=== PATIENT | female | born 1950 | race Caucasian/White ===

== ENCOUNTER 2018-08-08 14:52 | Inpatient (IN) ==
[2018-08-08] MEDS ORDERED: CLINIMIX E 4.25%-5% SOLUTION 1,000 ML IV SCH (17:15)
[2018-08-08] MEDS ORDERED: NS 1,000 ML IV SCH ×2 (17:15→18:15)
[2018-08-08] MEDS ORDERED: LOVENOX SUBQ SCH (17:15)
[2018-08-08] MEDS: ZOFRAN IV PRN (18:05)
[2018-08-08] MEDS: MORPHINE IV PRN (18:05)
--- NOTE | 2018-08-08 18:08 | Diag Imaging Result Doc PS360 ---
EXAM: ABDOMEN FLAT/UPRIGHT 08/08/2018 HISTORY: abdominal pain TECHNIQUE: Flat and upright abdomen COMMENT: There are phleboliths in the pelvis. There is no evidence of bowel obstruction organomegaly or mass. There is extensive arterial calcification. IMPRESSION: Nonspecific abdomen. Electronically signed by Arpan Astorga 08/08/2018 6:06 PM
[2018-08-08 19:18] LABS: HEMATOCRIT 39.5 % (37.0-47.0); HEMOGLOBIN 13.1 g/dL (12.0-16.0); RBC 3.98 XMIL (4.2-5.4); WBC 11.69 X1000 (4.8-10.8)
[2018-08-08 19:19] LABS: BASO# 0.06 X1000 (0.0-0.2); BASO% 0.5 % (0.0-0.8); IMM GRAN# 0.26 X1000 (0.0-0.04); IMM GRAN% 2.2 % (0.0-0.5); LYMPH# 1.59 X1000 (1.2-3.4); LYMPH% 13.6 % (20.5-51.1); MCH 32.9 PG (27-31); MCHC 33.2 g/dL (33-37); MCV 99.2 FL (81-99); MONO# 0.69 X1000 (0.11-0.59); MONO% 5.9 % (1.7-9.3); MPV 10.2 FL (7.4-10.4); NEUT# 9.09 X1000 (1.4-6.5); NEUT% 77.8 % (42.2-75.2); PLT 648 X1000 (130-400)
[2018-08-08 19:36] LABS: AGAP 21; ALB/GLOB RATIO 0.9; ALBUMIN 3.3 g/dL (3.5-5.0); ALKALINE PHOSPHATASE 405 U/L (32-104); BUN 16 mg/dL (8-22); CALCIUM 9.6 mg/dL (8.8-10.2); CHLORIDE 97 mmol/L (98-107); COSMO 271; CREATININE 0.6 mg/dL (0.5-0.9); ESTIMATED GFR > 60; GLUCOSE 130 mg/dL (70-104); GOT 31 U/L (10-30); GPT 16 U/L (10-36); POTASSIUM 3.9 mmol/L (3.5-5.1); SODIUM 134 mmol/L (136-145); TCO2 16 mmol/L (25-35); TOTAL BILIRUBIN 0.35 mg/dL (0.20-1.00); TOTAL PROTEIN 6.9 g/dL (6.3-8.3)
[2018-08-08] MEDS: NORCO-7.5 PO PRN (19:57)
[2018-08-08 20:41] LABS: BANDS 2 % (0-1); LYMPHS 10 % (21-51); MONO 2 % (1-9); SEGS 85 % (42-75)
[2018-08-08] MEDS ORDERED: HEPARIN SUBQ SCH (21:00)
--- NOTE | 2018-08-08 21:51 | HISTORY AND PHYSICAL ---
ONCOLOGIST: Dr. Adrian Razo. CHIEF COMPLAINT: Abdominal pain, dehydration, metastatic ovarian cancer. HISTORY OF PRESENT ILLNESS: This is a 68-year-old female with a history of metastatic ovarian cancer, who presents to the floor as a direct admit from Dr. Razo's office. Dr. Razo gives a history of metastatic ovarian cancer. During this last month, she has developed abdominal distention pain and constipation, but over the last 4 to 5 days, she has developed diarrhea. She cannot report when her last formed bowel movement was. She has had anorexia along with nausea for the last 2 weeks. Stated that she quit eating solid food during this last week. PAST MEDICAL HISTORY: Metastatic ovarian cancer. SOCIAL HISTORY: She smokes 1/4 pack of cigarettes a day. Denies alcohol or illicit drug use. PAST SURGICAL HISTORY: She has had a cholecystectomy. ALLERGIES: No known drug allergies. HOME MEDICATIONS: None. REVIEW OF SYSTEMS: Discussed with patient with pertinent positives stated in the HPI. She denied any syncope, any chest pain, palpitations, shortness of breath, PND, orthopnea, any cough, any fevers, chills, any night sweats, any vomiting, any black or bloody vomitus or stools, hematuria, dysuria, frequency, or urgency. PHYSICAL EXAMINATION: GENERAL: This is a 68-year-old female who is lying in the bed on the medical/surgical floor, in no distress. VITAL SIGNS: Blood pressure is 150/60 with a heart rate of 98, respirations 18. Temperature is 97.5 degrees oral with room air saturations of 93%. EYES: Pupils equal, round, react to light. EOMs are intact. Sclerae anicteric. HENT: Head is normocephalic, atraumatic. Mucous membranes are dry. NECK: Supple, with trachea midline. No JVD. CARDIOVASCULAR: Regular rate and rhythm. S1, S2 appreciated. She has no lower extremity edema. Calves are nontender bilateral with peripheral pulses palpable x4 extremities. PULMONARY: Breath sounds are clear with no increased work of breathing noted. Chest rises and falls symmetric with respiration. Chest wall is nontender to palpation. GASTROINTESTINAL: The abdomen is distended, soft, nontender, with bowel sounds in all 4 quadrants. GENITOURINARY: She has no CVA nor suprapubic tenderness. NEUROLOGIC: She is alert and oriented x3. Cranial nerves 2 through 12 are grossly intact. SKIN: Warm and dry. ASSESSMENT AND PLAN: 1. Metastatic ovarian cancer, followed by Dr. Razo. We will consult Dr. Razo. 2. Abdominal pain. Morphine 2 mg q.3 hours p.r.n. and monitor. 3. Recent diarrhea/constipation. KUB to assure that she is not impacted. 4. Dehydration. Normal saline at 100 mL an hour. 5. Failure to thrive, malnutrition. Clinimix at 100 mL an hour. 6. For deep vein thrombosis prophylaxis, Lovenox. 7. For gastrointestinal prophylaxis, Protonix 8. Further treatments pending hospital course. Patient seen and examined by me face to face, all the laboratory, vitals signs and images were reviewed, patient presented to this hospital directly from Dr Razo's office due to abdominal pain and distention, she has a history of peritoneal carcinomatosis, ovary cancer, she has not been eating well, failure to thrive, we will probably get a paracentesis done, we need to control her pain to see if she can eat , I agree with the CHIEF DIVERSITY OFFICER's assessment and plan, Ish Castorena MD. Dictated by CAMILA Barksdale for Ish Shipley MD cc: CAMILA Barksdale MD [facility]
[2018-08-08 23:44] LABS: URINE SOURCE CLEAN CATCH
[2018-08-08 23:53] LABS: BILIRUBIN URINE SMALL (NEGATIVE); BLOOD URINE NEGATIVE (NEGATIVE); COLOR YELLOW; GLUCOSE URINE NEGATIVE (NEGATIVE); KETONE URINE 10 mg/dL (NEGATIVE); LEUKOCYTES URINE NEGATIVE (NEGATIVE); NITRITE URINE NEGATIVE (NEGATIVE); PROTEIN URINE 70 mg/dL (NEGATIVE); TURBIDITY URINE CLEAR (CLEAR); UROBILINOGEN URINE 2 mg/dL (NORMAL)
[2018-08-08 23:57] LABS: UR EPITHELIAL CELLS <10 /HPF (<10); URINE BACTERIA NEGATIVE /HPF; URINE RBC <10 /HPF (<10); URINE WBC <10 /HPF (<10); URINE YEAST NONE SEEN
[2018-08-08 23:58] LABS: URINE CASTS GRANULAR PRESENT; URINE CRYSTALS NONE SEEN; URINE SMALL ROUND CELLS NONE SEEN
[2018-08-09] MEDS: MORPHINE IV PRN ×4 (01:11→21:07)
[2018-08-09] MEDS: ZOFRAN IV PRN ×2 (01:12→06:29)
[2018-08-09] MEDS: NORCO-7.5 PO PRN ×2 (06:29→19:05)
[2018-08-09 07:47] LABS: BASO# 0.02 X1000 (0.0-0.2); BASO% 0.2 % (0.0-0.8); EOS# 0.01 X1000 (0.0-0.7); EOS% 0.1 % (0.0-10.0); HEMATOCRIT 34.8 % (37.0-47.0); HEMOGLOBIN 11.4 g/dL (12.0-16.0); IMM GRAN# 0.18 X1000 (0.0-0.04); IMM GRAN% 2.1 % (0.0-0.5); LYMPH# 1.86 X1000 (1.2-3.4); LYMPH% 21.2 % (20.5-51.1); MCH 32.4 PG (27-31); MCHC 32.8 g/dL (33-37); MCV 98.9 FL (81-99); MONO# 1.24 X1000 (0.11-0.59); MONO% 14.2 % (1.7-9.3); NEUT# 5.45 X1000 (1.4-6.5); NEUT% 62.2 % (42.2-75.2); PLT 599 X1000 (130-400); RBC 3.52 XMIL (4.2-5.4); RDW 17.8 % (11.5-14.5); WBC 8.76 X1000 (4.8-10.8)
[2018-08-09 08:00] LABS: AGAP 11; ALBUMIN 3.2 g/dL (3.5-5.0); ALKALINE PHOSPHATASE 336 U/L (32-104); BUN 19 mg/dL (8-22); CALCIUM 9.2 mg/dL (8.8-10.2); CHLORIDE 98 mmol/L (98-107); COSMO 273; CREATININE 0.5 mg/dL (0.5-0.9); ESTIMATED GFR > 60; GLUCOSE 149 mg/dL (70-104); GOT 23 U/L (10-30); GPT 13 U/L (10-36); MAGNESIUM 1.9 mg/dL (1.5-2.7); POTASSIUM 3.5 mmol/L (3.5-5.1); SODIUM 134 mmol/L (136-145); TCO2 25 mmol/L (25-35); TOTAL BILIRUBIN 0.24 mg/dL (0.20-1.00); TOTAL PROTEIN 6.4 g/dL (6.3-8.3)
[2018-08-09] MEDS ORDERED: ZANTAC IV SCH (08:15)
[2018-08-09] MEDS: CLINIMIX E 4.25%-5% SOLUTION 1,000 ML IV SCH (08:28)
[2018-08-09] MEDS: NS 1,000 ML IV SCH (09:00)
--- NOTE | 2018-08-09 09:00 | PROGRESS NOTE ---
DATE: 08/09/2018 SUBJECTIVE: Patient is still complaining of abdominal pain. She seems to be a little bit more hydrated. She is complaining of abdominal pain and distention. I will ask for an abdominal paracentesis today. I told the patient that likely this abdominal distention will come back, and this is just to relieve the symptoms momentarily. OBJECTIVE: Vital Signs: Temperature 98 degrees, pulse 91, respiratory rate 18, blood pressure 140/62, and oxygen saturation 99 on room air. HEENT: Head normocephalic. No trauma. PERRLA. Neck: Supple. No JVD. No masses. Central trachea. Chest: Decreased breath sounds at the bases with some crepitus. Otherwise, clear to auscultation. No wheezing. No rales. Abdomen: The abdomen is distended and tense. Positive bowel sounds. Ascites. Extremities: No clubbing or cyanosis. Neurological: This patient is alert. She is oriented x3. No focal deficits. LABORATORY: WBC 8.7, hemoglobin 11.4, hematocrit 34.8, and platelet 599,000. Sodium 134, potassium 3.5, chloride 98, bicarbonate 25, BUN 19, creatinine 0.5, glucose 149. AST 23, ALT 13, alkaline phosphatase 336, and albumin 3.2. ASSESSMENT AND PLAN: 1. Metastatic ovarian cancer, followed by Dr. Razo. Consult has been placed. We will await for recommendations. 2. Intractable abdominal pain. We will continue with morphine 2 mg every 3 hours, and then p.o. medication as well. We will continue with same management. 3. Recent diarrhea/constipation. We did an abdominal x-ray yesterday to rule out obstruction, but there is no evidence of bowel obstruction or mass. There is an extensive arterial calcification. 4. Dehydration. She seems to be doing better. She seems to be more hydrated today. 5. Failure to thrive, malnutrition. She has been placed on Clinimix. Since this lady looks hydrated today, I will decrease the rate of the normal saline and the Clinimix as well. 6. Deep vein thrombosis prophylaxis. We will continue with same management. 7. Gastrointestinal prophylaxis with ranitidine. 8. Ascites, likely malignant. I will ask Interventional Radiology to remove some fluid from the abdomen. We will monitor. cc: Ish Shipley MD
[2018-08-09] MEDS: ZANTAC 50 MG in NS 50 ML IV SCH ×2 (10:20→19:04)
[2018-08-09 10:21] LABS: INR 1.17; PROTIME 15.9 Seconds (11.0-16.0)
[2018-08-09 10:22] LABS: PTT 46.5 Seconds (22.3-41.8)
[2018-08-09] MEDS: HEPARIN SUBQ SCH ×2 (12:19→21:12)
--- NOTE | 2018-08-09 13:19 | HEMO/ONC CONSULTATION ---
DATE: 08/09/2018 CHIEF COMPLAINT: The patient is experiencing abdominal pain, dehydration, anorexia, with a history of metastatic ovarian cancer. HISTORY OF PRESENT ILLNESS: Ms. Kirkland has a history of metastatic ovarian cancer. She was seen in the office yesterday with complaint of severe abdominal distention, anorexia, dehydration, and abdominal pain. She stated she has had minimal amount to eat or drink over the past week and a half. Her pain has increased. She is out of pain medication. When she did have hydrocodone, she was experiencing constipation. However, in the last 4-5 days, she has developed diarrhea. She reports nausea and vomiting. Ms. Kirkland is known to us. She is currently receiving treatment for metastatic ovarian cancer with IV Gemzar. She also receives B12 injections in our clinic. She has recently received 2 infusions of IV iron for iron-deficiency anemia. PAST MEDICAL HISTORY: Her past medical history includes: Metastatic ovarian cancer, essential hypertension, and iron-deficiency anemia. PAST SURGICAL HISTORY: Cholecystectomy. SOCIAL HISTORY: Smokes approximately a fourth pack of cigarettes a day. Denies alcohol or illicit drug use. ALLERGIES: Denies any known drug allergies. HOME MEDICATIONS: [place], folic acid, promethazine, Reglan, and Zofran. REVIEW OF SYSTEMS: She denies any chest pain, fevers, night sweats, melena, or clinical signs of bleeding. She complains of abdominal distention that causes some shortness of breath. She has had nausea and vomiting, diarrhea and constipation followed by diarrhea. PHYSICAL EXAMINATION: GENERAL: The patient appears uncomfortable. She is thin and pale. VITAL SIGNS: Temperature 98 degrees Fahrenheit, pulse rate 91, blood pressure 140/62, oxygen saturation 99% on room air. She complains of 8/10 abdominal pain. ENT: Pupils are PERRLA. Anicteric. Mucous membranes are dry. No JVD noted. CARDIOVASCULAR: Regular rate and rhythm, S1, S2 noted. No extremity edema noted. No murmurs, clicks, or rub audible. PULMONARY: Breath sounds are clear to auscultation. Normal respiratory effort noted. GASTROINTESTINAL: Abdomen is remarkably distended. It is soft. Tender to palpation. Bowel sounds present in all 4 quadrants. NEUROLOGIC: She is alert and oriented x3. SKIN: Warm and dry. LABORATORY DATA: White blood count is 8.76 this morning, hemoglobin is 11.4, hematocrit is 34.8, platelet count is 599,000. Potassium is 3.5, creatinine is 0.5, calcium is 9.2, alkaline phosphatase 336. ASSESSMENT AND PLAN: 1. Recurrent ovarian carcinoma. At this time, we will hold chemotherapy while patient is hospitalized. Once discharged and patient is stronger, hopefully we will restart chemotherapy at that time. Will continue to monitor. 2. Abdominal pain. The patient is being followed by Hospitalist service. 3. Dehydration. The patient is getting normal saline at 100 mL/hour. Followed by Hospitalist service. 4. Failure to thrive, malnutrition. The patient is receiving Clinimix at 100 mL/hour per Hospitalist service. 5. Deep venous thrombosis prophylaxis. The patient has been started on Lovenox. Dictated by CAMILA Catalan for Adrian Razo MD Patient seen and examined. As above. Patient seen and examined. Patient has a history of recurrent ovarian carcinoma and has been on therapy for a few years. About 2 months ago her disease progressed on Rubraca. She was started on Gemzar due to rising CA 125 which had increased to about 750. Within one cycle her CA- 125 dropped significantly to about 290. However in the meanwhile, she developed abdominal distention and abdominal pain. Over the last 1 week her oral intake has significantly decreased and she has lost weight. She is admitted for pain management and management of her ascites. Today she has tense ascites. Proceed with therapeutic paracenteses. Continue IV nutrition and encouraged her to eat. Increase morphine to 4 mg every 3 hours when necessary. We will follow with you. Thank you Adrian Razo M.D. cc: Adrian Razo MD [facility]
--- NOTE | 2018-08-09 14:23 | Diag Imaging Result Doc PS360 ---
US ABD PARACENTESIS W S/I - 08/09/2018 INDICATION: Ascites COMPARISON: 01/28/2016 FINDINGS: The risks and benefits of the procedure were discussed with the patient. All questions were answered. Written and verbal consent was obtained. Ultrasound scanning demonstrated ascites. Overlying skin was prepped and draped in sterile fashion. Local anesthesia was achieved with injection of 10 cc 1% lidocaine. The paracentesis catheter was advanced until the return of ascites fluid. 3.9 L of dark george fluid was aspirated was aspirated. The catheter was withdrawn intact. There were no known complications. IMPRESSION: Technically successful ultrasound-guided paracentesis with no known complications. Electronically signed by Kareem South 08/09/2018 2:21 PM
[2018-08-09] MEDS: MIRALAX PO SCH (15:55)
[2018-08-10] MEDS: NORCO-7.5 PO PRN ×3 (00:15→17:24)
[2018-08-10] MEDS: ZANTAC 50 MG in NS 50 ML IV SCH ×3 (00:17→17:25)
[2018-08-10] MEDS: CLINIMIX E 4.25%-5% SOLUTION 1,000 ML IV SCH ×2 (00:17→13:37)
[2018-08-10] MEDS: MORPHINE IV PRN ×3 (06:31→23:34)
[2018-08-10 07:18] LABS: HEMOGLOBIN 11.4 g/dL (12.0-16.0); RDW 17.8 % (11.5-14.5)
[2018-08-10 07:36] LABS: AGAP 10; ALB/GLOB RATIO 0.9; ALBUMIN 2.5 g/dL (3.5-5.0); ALKALINE PHOSPHATASE 246 U/L (32-104); BUN 19 mg/dL (8-22); CHLORIDE 99 mmol/L (98-107); COSMO 267; CREATININE 0.4 mg/dL (0.5-0.9); ESTIMATED GFR > 60; GLUCOSE 132 mg/dL (70-104); GOT 20 U/L (10-30); GPT 10 U/L (10-36); MAGNESIUM 1.8 mg/dL (1.5-2.7); POTASSIUM 4.3 mmol/L (3.5-5.1); SODIUM 131 mmol/L (136-145); TCO2 22 mmol/L (25-35); TOTAL BILIRUBIN 0.23 mg/dL (0.20-1.00); TOTAL PROTEIN 5.3 g/dL (6.3-8.3)
[2018-08-10 08:21] LABS: MCH 32.9 PG (27-31); MCHC 32.6 g/dL (33-37); MCV 101.2 FL (81-99); RBC 3.46 XMIL (4.2-5.4); WBC 11.28 X1000 (4.8-10.8)
[2018-08-10] MEDS: HEPARIN SUBQ SCH ×2 (09:58→23:37)
[2018-08-10] MEDS: MIRALAX PO SCH (09:59)
--- NOTE | 2018-08-10 11:34 | HEMO/ONC PROGRESS NOTE ---
DATE: 08/10/2018 SUBJECTIVE: The patient states her abdominal pain has been relieved due to paracentesis. She does appear to be feeling better as well as more hydrated. She has not gained back her appetite. She states her pain is being well-controlled at this time and she is feeling better. OBJECTIVE: Vital signs: Temperature is 98.1, heart rate is 95, respiratory rate 16, blood pressure 128/73, oxygen saturation 100% on room air. HEENT: PERRLA. No JVD. Respiratory: Decreased breath sounds at the bases. Patient able to clear mucus with cough. No wheezing, rales, or rhonchi. Abdomen: Abdomen is soft and nondistended. Positive bowel sounds. Pain to left upper quadrant with palpation. Extremities: No edema noted. Neurological: The patient is alert and oriented x3. No focal deficits noted. LABORATORY: White blood cells 11.28, hemoglobin 11.4, hematocrit 35.0, platelet count 463. Potassium is 4.3, creatinine is 0.4, calcium is 8.0, and her alkaline phosphatase is 246. ASSESSMENT AND PLAN: 1. Recurrent ovarian cancer: Chemotherapy will continue to be held at this time while patient is in the hospital. We will consider restarting her therapy once she has recovered from this hospital stay. 2. Intractable abdominal pain. We will continue with morphine 4 mg every 3 hours as needed. Goal to switch the patient to p.o. medication. Continue with Hospitalist's plan. 3. Recent diarrhea/constipation. The patient to continue MiraLAX. 4. Dehydration. Hydration has improved. Continue the patient on normal saline per Hospitalist service. 5. Nutrition. The patient is continuing on Clinimix. The patient needs Clear protein shakes 3-4 times daily with every meal and snacks as she can tolerate. Encouraged the patient to eat and allow her to progress with her diet as she can tolerate. 6. Deep vein thrombosis prophylaxis. Continue with anticoagulation management. Begin to get patient out of bed today as her pain has decreased. Dictated by CAMILA Catalan for Adrian Razo MD Patient seen and examined. As above. Patient is feeling better. She underwent large volume paracenteses. This has given her relief. Pain management is adequate. We will encourage her to drink protein shakes at least 4 times a day. Hopefully in a day will try to get her home. Adrian Razo M.D. cc: Adrian Razo MD [facility]
--- NOTE | 2018-08-10 12:10 | PROGRESS NOTE ---
DATE: 08/10/2018 SUBJECTIVE: Patient is still complaining of abdominal pain; 3.9 L of fluid has been removed yesterday from her abdomen. She feels better, but she is not eating that much. I talked to the patient and I encouraged her to start eating so she can get a little bit better. OBJECTIVE: Vital Signs: Temperature 98.1 degrees, pulse 95, respiratory rate 16, blood pressure 128/73, oxygen saturation 100% on room air. HEENT: Head normocephalic, no trauma. PERRLA. Neck: Supple. No JVD. No masses. Central trachea. Chest: Clear to auscultation. No wheezing. No rales. Abdomen: Soft, distended, positive wave sign, ascites, generalized tenderness to palpation. Extremities: No edema, no clubbing, no cyanosis. Neurological examination: The patient is alert and oriented x3. No focal deficits. LABORATORY: WBC 11.2, hemoglobin 11.4, hematocrit 35, platelets 463. Sodium 131, potassium 4.3, chloride 99, bicarbonate 22. BUN 19, creatinine 0.4, glucose 132, calcium 8. AST 20, ALT 10, alkaline phosphatase 246. ASSESSMENT AND PLAN: 1. Recurrent ovarian carcinoma, followed by Hematology/Oncology Department. Her pain is better controlled, but she is still not eating that much, even though we removed 3.9 liters of fluid yesterday. I will continue to monitor. 2. Abdominal pain as above. 3. Recent diarrhea/constipation. We did an abdominal x-ray 2 days ago to rule out obstruction, but there is not evidence of obstruction or mass. There is an extensive anterior calcification. 4. Dehydration resolved. 5. Failure to thrive, malnutrition. She has been placed on Clinimix. She looks hydrated. I will continue with same management. 6. Deep vein thrombosis prophylaxis. Continue with the same treatment. 7. Gastrointestinal prophylaxis with ranitidine. 8. Ascites, likely malignant, status post paracentesis, 3.9 liters of fluid has been removed. cc: Ish Shipley MD
[2018-08-10] MEDS: NS 1,000 ML IV SCH (13:37)
[2018-08-10] MEDS: ZOFRAN IV PRN (13:37)
[2018-08-10] MEDS: ZOFRAN ODT PO SCH (17:24)
[2018-08-11] MEDS: ZANTAC 50 MG in NS 50 ML IV SCH ×3 (00:15→17:27)
[2018-08-11] MEDS: NORCO-7.5 PO PRN ×3 (01:30→17:26)
[2018-08-11] MEDS: CLINIMIX E 4.25%-5% SOLUTION 1,000 ML IV SCH ×2 (04:15→17:27)
[2018-08-11] MEDS: MORPHINE IV PRN ×4 (04:31→21:57)
[2018-08-11] MEDS: ZOFRAN ODT PO SCH ×3 (06:30→17:27)
[2018-08-11 08:03] LABS: AGAP 8; BUN 18 mg/dL (8-22); CALCIUM 8.5 mg/dL (8.8-10.2); CHLORIDE 96 mmol/L (98-107); COSMO 262; CREATININE 0.4 mg/dL (0.5-0.9); ESTIMATED GFR > 60; GLUCOSE 113 mg/dL (70-104); POTASSIUM 4.7 mmol/L (3.5-5.1); SODIUM 129 mmol/L (136-145); TCO2 25 mmol/L (25-35)
[2018-08-11] MEDS: HEPARIN SUBQ SCH ×2 (10:44→21:44)
[2018-08-11] MEDS: MIRALAX PO SCH (10:45)
--- NOTE | 2018-08-11 15:02 | HEMO/ONC PROGRESS NOTE ---
DATE: 08/11/2018 SUBJECTIVE: The patient is awake and comfortable. She states that she is having increased abdominal pain today. Her abdomen is more full again. She still does not have any appetite. I am encouraging her to eat and attempt protein shakes. OBJECTIVE: Vital Signs: Temperature 98.4 degrees F, pulse 87, respiratory rate 15, blood pressure 131/61, oxygen saturation 100% on room air. HEENT: PERRLA. Neck: Supple. No JVD. No lymphadenopathy. Chest: Clear to auscultation. No wheezing or rales. Abdomen: Soft, it is distended. Abdominal tenderness to the left and right upper quadrants. Extremities: No edema. No cyanosis. Neurologic: Alert and oriented x3. No focal deficits. LABORATORY: Sodium is 129, calcium is 8.5. Her CBC today is pending. ASSESSMENT AND PLAN: 1. Recurrent ovarian cancer. Chemotherapy will continue to be held at this time while patient is in the hospital. We will consider restarting her therapy once she has recovered from this hospital stay. 2. Intractable abdominal pain. Continue to medicate per Hospitalist's plan. It is likely will have to continue therapeutic paracentesis on outpatient basis to control her ascites. 3. Dehydration. The patient's hydration has improved. Stop IVF due to worsening ascitis. 4. Nutrition. Continue to encourage the patient to eat and drink, encourage that she has at least 4 protein shakes a day is a our goal. Continue to give patient Zofran 4 mg OTD 30 minutes prior to her scheduled meals. 5. Deep vein thrombosis prophylaxis. Continue with anticoagulation management. The patient should be getting out of bed several times a day as her pain allows. Dictated by CAMILA Catalan for Adrian Razo MD Patient seen and examined. As above. Her abdomen is distended again today. Her ascites appears to have collected rather quickly. We will consult surgery to consider long-term drainage. Continue pain management as we are doing. Continue Clinimix. She has been encouraged to eat. Start Megace trial. DVT prophylaxis with Lovenox or heparin. Discussed with Dr. Lord. Adrian Razo M.D. cc: Adrian Razo MD [facility]
[2018-08-11] MEDS: MEGACE PO SCH ×2 (15:27→21:44)
--- NOTE | 2018-08-11 15:47 | PROGRESS NOTE ---
DATE: 08/11/2018 SUBJECTIVE: Patient is still complaining of abdominal pain, 3.5 L of fluid has been removed 2 days ago but the abdomen is again distended, she is not eating, I will keep her on Clinimix but I will decrease the rate to 50 mL/h. I had a conversation with Dr. Razo which is technology analyst/oncologist about this patient, we are consulting surgery department to place a Port- A-Cath and to place a permanent abdominal drain since this patient's ascites came back really fast, hopefully with this and controlling the pain the patient will be able to eat. OBJECTIVE: Vital Signs: Temperature 98.4 degrees, pulse 87, respiratory rate 15, blood pressure 131/61, oxygen saturation 100% on room air. HEENT: Head normocephalic. No trauma. PERRLA. Neck: Supple. No JVD. No masses. Central trachea. Chest: Clear to auscultation. No wheezing. No rales. Abdomen: Soft, distended, positive wave sign, ascites, generalized tenderness to palpation. Extremities: No edema, no clubbing, no cyanosis. Neurologic: This patient is alert and oriented x3. No focal deficits. LABORATORY: Sodium 129, potassium 4.7, chloride 96, bicarbonate 25, BUN 18, creatinine 0.4, glucose 113, calcium 8.5. ASSESSMENT AND PLAN: 1. Recurrent ovarian carcinoma followed by Dr. Razo from Hematology Oncology/Department. Her pain is better controlled but she is still having a lot of fluid inside the abdomen, we have requested an evaluation by Surgery Department to place a permanent abdominal drain and a Port- A-Cath, case discussed with Dr. Razo. 2. Abdominal pain as above. 3. Recent diarrhea, constipation, we did an abdominal x-ray 3 days ago to rule out obstruction. There is no evidence of obstruction or mass. There is an extensive arterial calcification. 4. Dehydration resolved. 5. Failure to thrive, malnutrition, continue with Clinimix but I will decrease the dose to 50 mL/h given her ascites. 6. Deep vein thrombosis prophylaxis. For now will continue with heparin subcutaneously twice a day but upon discharge we will send this patient home with warfarin 1 mg or warfarin 2 mg. 7. Gastrointestinal prophylaxis with ranitidine. 8. Ascites, likely malignant, we will try to place a permanent drain with Surgery Department. 9. At this moment we are going to continue with the same management, I have decreased the rate of the Clinimix given her abdominal distention. We believe the ascites is due to the peritoneal carcinomatosis/cancer and a drain hopefully will be placed. Upon discharge Dr. Razo has suggested to start warfarin 1 or 2 mg daily for DVT prophylaxis. In the other hand we put this patient on Megace to stimulate her appetite. cc: Ish Shipley MD
[2018-08-11] MEDS: NS 1,000 ML IV SCH (17:27)
[2018-08-11] MEDS ORDERED: COUMADIN PO SCH (21:00)
[2018-08-12] MEDS: NORCO-7.5 PO PRN ×3 (00:50→19:44)
[2018-08-12] MEDS: ZANTAC 50 MG in NS 50 ML IV SCH ×3 (00:50→18:36)
[2018-08-12] MEDS: MORPHINE IV PRN ×4 (04:48→18:36)
[2018-08-12] MEDS: ZOFRAN ODT PO SCH ×3 (06:15→18:35)
[2018-08-12 07:54] LABS: BASO# 0.04 X1000 (0.0-0.2); BASO% 0.3 % (0.0-0.8); EOS# 0.02 X1000 (0.0-0.7); EOS% 0.2 % (0.0-10.0); HEMOGLOBIN 12.1 g/dL (12.0-16.0); IMM GRAN# 0.31 X1000 (0.0-0.04); IMM GRAN% 2.6 % (0.0-0.5); LYMPH# 1.21 X1000 (1.2-3.4); LYMPH% 10.3 % (20.5-51.1); MCHC 32.7 g/dL (33-37); MCV 97.9 FL (81-99); MONO% 15.3 % (1.7-9.3); MPV 10.5 FL (7.4-10.4); NEUT# 8.39 X1000 (1.4-6.5); NEUT% 71.3 % (42.2-75.2); RBC 3.78 XMIL (4.2-5.4); RDW 17.9 % (11.5-14.5); WBC 11.77 X1000 (4.8-10.8)
[2018-08-12 08:00] LABS: AGAP 12; BUN 15 mg/dL (8-22); CALCIUM 9.1 mg/dL (8.8-10.2); CHLORIDE 91 mmol/L (98-107); COSMO 258; CREATININE 0.5 mg/dL (0.5-0.9); ESTIMATED GFR > 60; GLUCOSE 103 mg/dL (70-104); POTASSIUM 4.5 mmol/L (3.5-5.1); SODIUM 128 mmol/L (136-145); TCO2 25 mmol/L (25-35)
--- NOTE | 2018-08-12 08:55 | GENERAL SURGERY CONSULTATION ---
DATE: 08/11/2018 HISTORY OF PRESENT ILLNESS: This is a 68-year-old female who is a patient Dr. Razo who has metastatic ovarian cancer. She has had recurrent malignant ascites. She was admitted on the with abdominal distention and pain and constipation. She underwent a paracentesis this hospitalization but has on exam, reaccumulated some fluid. She has had a resection through her lower midline, apparently for her ovarian carcinoma, but the details are unclear. She has also had a cholecystectomy. MEDICAL HISTORY: Metastatic ovarian cancer. SOCIAL HISTORY: Quarter pack a day of cigarettes. No alcohol. No drugs. REVIEW OF SYSTEMS: Ten point negative. SURGICAL HISTORY: As mentioned in her HPI. FAMILY HISTORY: Reviewed and noncontributory. PHYSICAL EXAMINATION: VITAL SIGNS: Currently she is afebrile, pulse 94, blood pressure 135/65, oxygen saturation 98%. General: She is alert, in no acute distress. She is 99 pounds, 5 feet tall with a BMI of 19. She is alert and conversant. HEENT: There is no scleral icterus. No cervical mass. Cardiovascular: Normal rate. Pulmonary: No increased work of breathing. Abdomen: Protuberant, soft, with apparent fluid wave but nontender. There is a midline incision. Integument: Warm and dry without jaundice. Psychiatric: Appropriate affect. Neurologic: No gross deficits. Peripheral vascular: Well-perfused. Trace lower extremity edema. Lymphatic: No cervical, axillary or inguinal adenopathy. LABORATORY DATA: White count yesterday was 11, hematocrit 35, platelets 463,000. Creatinine 0.4, sodium is 129. Her INR was 1.17. I reviewed her paracentesis report, abdominal ultrasound and her medical record. ASSESSMENT AND PLAN: A 68-year-old female with metastatic ovarian cancer. I have been consulted to evaluate for a peritoneal catheter she can go home with, as well as port placement. I have discussed the possibility with this patient we will plan for this most likely early next week, possibly sooner pending OR availability over the weekend. cc: Cesario Parra MD
[2018-08-12] MEDS: CLINIMIX E 4.25%-5% SOLUTION 1,000 ML IV SCH (08:56)
[2018-08-12] MEDS: MEGACE PO SCH ×2 (08:57→19:43)
[2018-08-12] MEDS: HEPARIN SUBQ SCH ×2 (08:57→19:44)
[2018-08-12] MEDS: NS 1,000 ML IV SCH (08:57)
[2018-08-12] MEDS: MIRALAX PO SCH (08:59)
[2018-08-12 09:35] LABS: PLT 371 X1000 (130-400)
[2018-08-12 09:38] LABS: ANISOCYTOSIS 1+; LYMPHS 10 % (21-51); MONO 15 % (1-9); SEGS 73 % (42-75)
--- NOTE | 2018-08-12 21:04 | PROGRESS NOTE ---
DATE: 08/12/2018 SUBJECTIVE: The patient is still complaining of abdominal pain. She has been trying to eat some bites, but not enough. I will keep this patient with the same management. The plan is to put a peritoneal catheter and Port-A-Cath by Surgery Department. OBJECTIVE: Vital Signs: Temperature 98.2 degrees, pulse 85, respiratory rate 15, blood pressure 147/64, oxygen saturation 100% on room air. HEENT: Head normocephalic, no trauma. PERRLA. Neck: Supple. No JVD. No masses. Central trachea. Chest: Clear to auscultation. No wheezing. No rales. Abdomen: Tense, distended. Positive wave sign. Ascites. Generalized tenderness to palpation. Extremities: Trace edema. No clubbing. No cyanosis. Neurological: The patient is alert and oriented x3. No focal deficits. LABORATORY: WBC 11.7, hemoglobin 12.1, hematocrit 37, platelets 371,000. Sodium 128, potassium 4.5, chloride 91, bicarbonate 25, BUN 15, creatinine 0.5, glucose 113, calcium 9.1. ASSESSMENT AND PLAN: 1. Recurrent ovarian carcinoma, followed by Dr. Razo from Hematology/Oncology Department, also peritoneal carcinomatosis. We will continue with the same management. The plan is to put a Port-A-Cath and also a peritoneal catheter. 2. Abdominal pain, likely due to her peritoneal carcinomatosis and ascites. She had a paracentesis done a few days ago, but she reaccumulated again really fast so the decision to put a drain has been made. 3. Recent diarrhea and constipation. She is not complaining of any of those at this moment. 4. Dehydration, resolved. 5. Failure to thrive, malnutrition. Continue with Clinimix. 6. Deep vein thrombosis prophylaxis. For now, we will continue with heparin subcutaneously twice a day, but upon discharge, we will send this patient home with warfarin 1 mg or warfarin 2 mg p.o. daily. 7. Gastrointestinal prophylaxis with ranitidine. 8. Ascites, likely malignant. We will try to get a permanent drain with Surgery Department. 9. For the moment, I will continue with same management. I believe once the catheter is placed, she will feel better and she will start eating. Upon discharge, Dr. Razo has suggested to start this patient on warfarin 1 or 2 mg per day for DVT prophylaxis. cc: Ish Shipley MD
[2018-08-13] MEDS: ZANTAC 50 MG in NS 50 ML IV SCH ×3 (00:56→17:58)
[2018-08-13] MEDS: MEGACE PO SCH ×3 (01:39→20:00)
[2018-08-13] MEDS: HEPARIN SUBQ SCH ×3 (01:39→20:00)
[2018-08-13] MEDS: MORPHINE IV PRN ×4 (02:40→17:59)
--- NOTE | 2018-08-13 03:27 | HEMO/ONC PROGRESS NOTE ---
DATE: 08/12/2018 SUBJECTIVE: Ms Kirkland is awake this morning. She states that she is having increased abdominal distention with pain. She continues to not have any appetite despite being started on Megace. She is complaining of 7/10 pain this morning, it has improved since having a pain pill a short while ago. OBJECTIVE: Vital signs: Temperature 98.2 degrees, pulse rate 85, respiratory rate 18, blood pressure 147/64. She is 100% on room air. General: The patient is awake, lying in bed, in no acute distress. HEENT: PERRLA. Anicteric. Chest: Clear to auscultation. No wheezing or rales noted. Abdomen: Distended and somewhat firm. Abdominal tenderness is diffuse all over. Extremities: No edema or cyanosis noted. Neurological: Alert and oriented x3. No focal deficits. LABORATORY: White blood cells are 11.77, hemoglobin 12.1, hematocrit 37.0, platelet count 371,000. Sodium is 128, potassium is 4.5, creatinine is 0.5, calcium is 9.1. ASSESSMENT AND PLAN: 1. Recurrent ovarian cancer: Chemotherapy will continue to be held at this time while the patient is in the hospital. We will consider restarting once her therapy has recovered from this hospital stay. 2. Intractable abdominal pain and distention: Consult surgery to consider long- term drainage solution, as well as a Port-A-Cath for future chemotherapy. The patient requesting another therapeutic paracentesis prior to discharge. Continue current pain regimen. 3. Nutrition: The patient is being started on Megace trial. We are encouraging the patient to eat and drink with a goal of at least 4 protein shakes a day. Continue to give the patient Zofran 4 mg ODT 30 minutes prior to her scheduled meals. 4. Deep venous thrombosis prophylaxis: Continue with anticoagulation management. The patient should also be getting out of bed several times a day, as her pain allows. Dictated by CAMILA Catalan for Adrian Razo MD Patient seen and examined. As above. Plans for Port-A-Cath placement and peritoneal catheter placement for outpatient ascites drainage. Pain management adequate at this time. Continue current dose of morphine. Patient is comfortable. Nausea is well controlled. She is on Megace. Continue to encourage increased calorie intake and protein shakes. Adrian Razo M.D. cc: Adrian Razo MD MTDD
--- NOTE | 2018-08-13 05:01 | GENERAL SURGERY PROGRESS NOTE ---
DATE: 08/12/2018 SUBJECTIVE: Doing okay. No real complaints. No fevers, no tachycardia. OBJECTIVE: General: She is alert. Cardiovascular: Normal rate. Abdomen: Distended but soft, nontender. LABS: White count 11, hematocrit 37. Creatinine 0.5. ASSESSMENT AND PLAN: This is a 68-year-old female with metastatic ovarian cancer. She has had recurrent malignant ascites requiring paracentesis. I do feel as though a tunneled peritoneal catheter would benefit the patient. She needs a port for ongoing therapy and IV access. We will plan for this early next week, based off of OR availability. cc: Cesario Parra MD
[2018-08-13] MEDS: CLINIMIX E 4.25%-5% SOLUTION 1,000 ML IV SCH (05:23)
[2018-08-13] MEDS: NORCO-7.5 PO PRN ×3 (05:23→19:59)
[2018-08-13] MEDS: ZOFRAN ODT PO SCH ×3 (06:17→15:19)
[2018-08-13 06:58] LABS: BASO# 0.03 X1000 (0.0-0.2); BASO% 0.2 % (0.0-0.8); EOS# 0.03 X1000 (0.0-0.7); EOS% 0.2 % (0.0-10.0); HEMOGLOBIN 10.5 g/dL (12.0-16.0); IMM GRAN# 0.18 X1000 (0.0-0.04); IMM GRAN% 1.4 % (0.0-0.5); LYMPH# 1.34 X1000 (1.2-3.4); LYMPH% 10.1 % (20.5-51.1); MCH 32.1 PG (27-31); MCHC 32.8 g/dL (33-37); MCV 97.9 FL (81-99); MONO# 1.98 X1000 (0.11-0.59); MONO% 14.9 % (1.7-9.3); MPV 10.5 FL (7.4-10.4); NEUT# 9.75 X1000 (1.4-6.5); NEUT% 73.2 % (42.2-75.2); PLT 301 X1000 (130-400); RBC 3.27 XMIL (4.2-5.4); RDW 17.9 % (11.5-14.5); WBC 13.31 X1000 (4.8-10.8)
[2018-08-13 07:10] LABS: AGAP 13; BUN 13 mg/dL (8-22); CALCIUM 8.8 mg/dL (8.8-10.2); CHLORIDE 93 mmol/L (98-107); COSMO 257; CREATININE 0.4 mg/dL (0.5-0.9); ESTIMATED GFR > 60; GLUCOSE 123 mg/dL (70-104); POTASSIUM 4.4 mmol/L (3.5-5.1); SODIUM 127 mmol/L (136-145); TCO2 21 mmol/L (25-35)
[2018-08-13] MEDS: NS 1,000 ML IV SCH (08:17)
[2018-08-13] MEDS: MIRALAX PO SCH (08:22)
--- NOTE | 2018-08-13 10:14 | Diag Imaging Result Doc PS360 ---
EXAM: CT ABDOMEN/PELVIS W/O CONTRAST 08/13/2018 HISTORY: evaluate ascities TECHNIQUE: This exam was performed using automated exposure control, adjustment of mA or kV according to patient size, and/or use of iterative reconstruction technique. COMMENT: The current examination is compared to the previous study of 07/13/2018. There is some atelectasis in the left lower lobe which is worse than on the previous examination. There is a pleural effusion which was not previously present. There is ascites which may be partially loculated. This appears slightly worse than on the previous examination. There is more subcutaneous edema and presacral edema than on the previous examination. There are somewhat dense peritoneal nodules which are principally evident over the omentum and adjacent to the ascending and descending colon. There are numerous cholesterol stones in the gallbladder. There is a large cyst in the right kidney. The adrenal glands do not appear to be enlarged. The spleen is not enlarged. There is no evidence of nephrolithiasis or hydronephrosis. There is mild mesenteric adenopathy with at least one node exceeding 11 mm in size. There are degenerative facet and disc changes in the lumbar spine. The regional skeleton is stable in appearance. IMPRESSION: Slightly worsened malignant ascites. New left pleural effusion. Cholelithiasis. Anasarca. Electronically signed by Arpan Astorga 08/13/2018 10:12 AM
--- NOTE | 2018-08-13 11:54 | PROGRESS NOTE ---
DATE: 08/13/2018 SUBJECTIVE: No acute changes. She is still complaining of abdominal pain. She is still not eating enough. I will continue with same management. The plan is to put an abdominal drain and a Port-A-Cath, hopefully at the beginning of the week. OBJECTIVE: Vital Signs: Temperature 98 degrees, pulse 74, respiratory rate 14, blood pressure 140/50, oxygen saturation 98 on room air. HEENT: Head normocephalic. No trauma. PERRLA. Neck: Supple. No JVD. No masses. Central trachea. Chest: Clear to auscultation. Some crepitus at the bases. Abdomen: Tense, distended. Positive wave sign, ascites. Generalized tenderness to palpation. Extremities: Trace edema. No clubbing. No cyanosis. Neurological Examination: The patient is alert and oriented x3. No focal deficits. Laboratory: WBC 13.3, hemoglobin 10.5, hematocrit 32, platelets 301,000. Sodium 127, potassium 4.4, chloride 93, bicarbonate 21, BUN 13, creatinine 0.4, glucose 123, calcium 8.8. ASSESSMENT AND PLAN: 1. Recurrent ovarian carcinoma, followed by Dr. Razo. Also peritoneal carcinomatosis. We will continue with the same management. The plan is to put a Port-A-Cath and also peritoneal catheter. 2. Abdominal pain, likely secondary to peritoneal carcinomatosis and ascites. She had a paracenteses done a few days ago but she reaccumulated again really fast so the decision to place a drain has been made and surgery department has been consulted. 3. Recent diarrhea and constipation. She is not complaining of any of those at this moment. 4. Dehydration, resolved. 5. Failure to thrive, malnutrition. Continue with Clinimix. 6. Deep vein thrombosis prophylaxis. For now, we will continue with heparin subcutaneously twice a day but upon discharge, Dr. Razo has requested to start this patient on warfarin 1 mg or warfarin 2 mg by mouth daily. 7. Gastrointestinal prophylaxis with ranitidine. 8. Ascites, likely malignant. We will try to get a permanent drain with surgery department at the beginning of this week. 9. For the moment, we will continue with the same treatment. I believe once the abdominal drain is placed, this patient will feel better and she will start eating. Upon discharge, Dr. Razo has requested to put this patient on warfarin 1 mg to 2 mg per daily for deep venous thrombosis prophylaxis. cc: Ish Shipley MD
--- NOTE | 2018-08-13 20:18 | GENERAL SURGERY PROGRESS NOTE ---
DATE: 08/13/2018 SUBJECTIVE: She is very weak and requires assistance to ambulate but otherwise no events. Her abdomen remains distended and uncomfortable. No fevers. Pulse 87, blood pressure 152/59, oxygen saturation 93% on room air.General: She is alert and conversant. Cardiovascular: Normal rate. Abdomen: Is protuberant, distended. Lower midline scar. LABS: Reviewed her labs and I reviewed her non con CT today. CT scan shows a large amount of ascites in pelvis and bilateral gutters. ASSESSMENT AND PLAN: This is a 68-year-old female with metastatic ovarian cancer, recurrent malignant ascites. She needs long-term drainage solution as well as port placement. We discussed risks of bleeding, infection, damage surrounding structures, malfunction the catheter, pneumothorax, vascular injury. She understands all this consents. Will go the operating room tomorrow, make her NPO at midnight. cc: Cesario Parra MD
[2018-08-14] MEDS: ZANTAC 50 MG in NS 50 ML IV SCH ×3 (01:35→17:00)
[2018-08-14] MEDS: MORPHINE IV PRN ×5 (02:16→21:13)
[2018-08-14] MEDS: NORCO-7.5 PO PRN ×3 (04:36→19:00)
[2018-08-14] MEDS: CLINIMIX E 4.25%-5% SOLUTION 1,000 ML IV SCH (04:36)
[2018-08-14] MEDS: ZOFRAN ODT PO SCH ×3 (06:17→17:00)
[2018-08-14 07:17] LABS: BASO# 0.03 X1000 (0.0-0.2); BASO% 0.2 % (0.0-0.8); EOS# 0.02 X1000 (0.0-0.7); EOS% 0.1 % (0.0-10.0); HEMATOCRIT 30.5 % (37.0-47.0); HEMOGLOBIN 10.1 g/dL (12.0-16.0); IMM GRAN# 0.18 X1000 (0.0-0.04); IMM GRAN% 1.2 % (0.0-0.5); LYMPH# 1.12 X1000 (1.2-3.4); LYMPH% 7.3 % (20.5-51.1); MCH 32.4 PG (27-31); MCHC 33.1 g/dL (33-37); MCV 97.8 FL (81-99); MONO# 2.21 X1000 (0.11-0.59); MONO% 14.3 % (1.7-9.3); MPV 10.4 FL (7.4-10.4); NEUT# 11.88 X1000 (1.4-6.5); NEUT% 76.9 % (42.2-75.2); PLT 293 X1000 (130-400); RBC 3.12 XMIL (4.2-5.4); RDW 17.9 % (11.5-14.5); WBC 15.44 X1000 (4.8-10.8)
[2018-08-14 08:23] LABS: AGAP 9; ALB/GLOB RATIO 0.7; ALBUMIN 2.5 g/dL (3.5-5.0); ALKALINE PHOSPHATASE 396 U/L (32-104); BUN 13 mg/dL (8-22); CALCIUM 8.8 mg/dL (8.8-10.2); CHLORIDE 93 mmol/L (98-107); COSMO 254; CREATININE 0.5 mg/dL (0.5-0.9); ESTIMATED GFR > 60; GLUCOSE 114 mg/dL (70-104); GOT 21 U/L (10-30); GPT 11 U/L (10-36); POTASSIUM 5.6 mmol/L (3.5-5.1); TCO2 24 mmol/L (25-35); TOTAL BILIRUBIN 0.44 mg/dL (0.20-1.00)
[2018-08-14 08:24] LABS: SODIUM 126 mmol/L (136-145)
[2018-08-14] MEDS: NS 1,000 ML IV SCH (10:09)
[2018-08-14] MEDS ORDERED: NS 1,000 ML IV SCH (10:32)
[2018-08-14] MEDS ORDERED: CLINIMIX E 4.25%-5% SOLUTION 1,000 ML IV SCH (10:32)
[2018-08-14] MEDS ORDERED: ALBUTEROL 0.5% INH CONC FOR HYPERKALEMIA INH ONE (10:33)
--- NOTE | 2018-08-14 10:52 | Diag Imaging Result Doc PS360 ---
EXAM: CHEST-PORTABLE HISTORY: Cough TECHNIQUE: Chest single view COMPARISON: None. FINDINGS: The lungs are well expanded. The heart is not enlarged. The vessels are not distended. Minimal increased markings in the left lung base. No effusion identified. IMPRESSION: Small left basilar infiltrate Electronically signed by Matt Butler 08/14/2018 10:49 AM
[2018-08-14] MEDS: MEGACE PO SCH ×2 (11:01→21:14)
[2018-08-14] MEDS: HEPARIN SUBQ SCH ×2 (11:01→21:13)
[2018-08-14] MEDS: MIRALAX PO SCH (11:01)
[2018-08-14] MEDS: D5 NS 1,000 ML IV SCH (11:08)
[2018-08-14 12:00] LABS: URINE SOURCE CLEAN CATCH
[2018-08-14] MEDS ORDERED: LEVAQUIN 500 MG/D5W 500 MG/100 ML IVPB IV SCH (12:00)
[2018-08-14 12:05] LABS: BILIRUBIN URINE NEGATIVE (NEGATIVE); BLOOD URINE NEGATIVE (NEGATIVE); COLOR YELLOW; GLUCOSE URINE NEGATIVE (NEGATIVE); KETONE URINE NEGATIVE (NEGATIVE); LEUKOCYTES URINE NEGATIVE (NEGATIVE); NITRITE URINE NEGATIVE (NEGATIVE); PROTEIN URINE NEGATIVE (NEGATIVE); SP GRAVITY URINE 1.008; TURBIDITY URINE CLEAR (CLEAR); UROBILINOGEN URINE 2 mg/dL (NORMAL)
[2018-08-14 12:06] LABS: UR EPITHELIAL CELLS <10 /HPF (<10); URINE BACTERIA NEGATIVE /HPF; URINE RBC <10 /HPF (<10); URINE WBC <10 /HPF (<10)
[2018-08-14 12:56] LABS: ESTIMATED GFR > 60
[2018-08-14 13:11] LABS: AGAP 16; BUN 12 mg/dL (8-22); CALCIUM 8.8 mg/dL (8.8-10.2); CHLORIDE 89 mmol/L (98-107); COSMO 255; CREATININE 0.5 mg/dL (0.5-0.9); GLUCOSE 124 mg/dL (70-104); POTASSIUM 3.8 mmol/L (3.5-5.1); SODIUM 126 mmol/L (136-145); TCO2 21 mmol/L (25-35)
--- NOTE | 2018-08-14 13:30 | PROGRESS NOTE ---
DATE: 08/14/2018 SUBJECTIVE: She is still complaining of abdominal pain and abdominal distention. This patient is not having fever or chills but her WBC is going up. X-ray showed a possible small left basilar infiltrate that probably is just fluid as we can see in the abdominal and pelvis CT scan but it could be also an underlying pneumonia. She is not having too many symptoms but she is complaining of abdominal pain. I will place this patient on levofloxacin and I will monitor. OBJECTIVE: Vital Signs: Temperature 97.8 degrees, pulse 105, respiratory rate 18, blood pressure 158/50, oxygen saturation 100% on room air. HEENT: Head normocephalic. No trauma. PERRLA. Neck: Supple. No JVD. No masses. Central trachea. Chest: Clear to auscultation. Some rales at the bases, mostly on the left side, maybe some crepitus. Abdomen: Soft, tense, distended. Positive ascites. Generalized tenderness to palpation. Extremities: Trace edema. No clubbing. No cyanosis. Neurological Examination: The patient is alert and oriented x3. No focal deficits. Laboratory: WBC 15.4, hemoglobin 10.1, hematocrit 30.5, platelets 293,000. Sodium 126, potassium 5.6, chloride 93, bicarbonate 24, BUN 13, creatinine 0.5, glucose 114, calcium 8.8, albumin 2.5. ASSESSMENT AND PLAN: 1. Recurrent ovarian carcinoma, followed by Dr. Razo. Also peritoneal carcinomatosis. We will continue with the same management. The plan is to put a Port-A-Cath and also a peritoneal catheter to drain the ascites since this is probably the cause of her decreased appetite and pain. Hopefully, tomorrow, we will do the procedure. 2. Abdominal pain, as above. 3. Recent diarrhea, resolved. 4. Dehydration, resolved. 5. Failure to thrive, malnutrition. She has been getting Clinimix, which has been stopped today. I will put her on D5 normal saline due to her hyponatremia. 6. Deep vein thrombosis prophylaxis. For now, continue with heparin subcutaneously twice a day but upon discharge, Dr. Razo has requested to start this patient on warfarin 1 mg or warfarin 2 mg by mouth by mouth daily. 7. Gastrointestinal prophylaxis with ranitidine. 8. Hyponatremia. This patient has received Clinimix on a daily basis which has water. I will stop it today and I will put her on normal saline to see how she does. 9. Ascites, malignant. We will try to get a permanent drain with surgery department hopefully tomorrow. 10. Left lower lobe infiltrate in a patient with a history of cancer and possible immunodeficiency. I will start this patient on levofloxacin. This infiltrate can be related to fluid but it could be an underlying infection. Also, her WBC is going up. 11. Hyperkalemia. I will give her a breathing treatment. I will ask for a new laboratory, which is pending at this moment, to corroborate that the potassium level is high. It has been normal since admission for the past 5 to 6 days. We will monitor. cc: Ish Shipley MD
--- NOTE | 2018-08-14 15:52 | GENERAL SURGERY PROGRESS NOTE ---
DATE: 08/14/2018 SUBJECTIVE: Feels about the same. No fevers. Low-grade tachycardia this morning. OBJECTIVE: Vital Signs: Blood pressure 158/50, oxygen saturation 100%. General: She is alert. Cardiovascular: Regular rate. Abdomen: Distended but stably so. Firm, but nontender. Integument: Warm and dry. LABORATORY STUDIES: White count up to 15, hematocrit 30. Creatinine 0.5. Her sodium is down to 126, potassium is 5.6. ASSESSMENT AND PLAN: A 68-year-old female with malignant ascites and ovarian cancer. We initially had her on schedule for laparoscopic placement of peritoneal drain with port placement but giving rise in her white count and worsening electrolytes, I recommended further medical optimization prior to surgery. I do have her on the schedule for tomorrow. We will see how her labs look later. I have talked to Dr. Lord about it. cc: Cesario Parra MD
--- NOTE | 2018-08-14 16:00 | HEMO/ONC PROGRESS NOTE ---
DATE: 08/14/2018 SUBJECTIVE: The patient is resting in bed. The patient's still continues to be very obtunded. The patient is going to the operating room tomorrow for a drainage catheter into the abdomen. OBJECTIVE: Vital Signs: Temperature 97.3 degrees, heart rate 82, respiratory rate 20, blood pressure 138/53, saturating 94% on room air. General: The patient is awake, lying in bed, no acute distress noted. HEENT: Anicteric. PERRLA. Mucous membranes moist. Cardiovascular: S1, S2. Regular rate and rhythm. Chest: Bilateral breath sounds clear to auscultation. Abdomen: Distended, firm. Abdominal tenderness all over. Bowel sounds hypoactive. Neurologic: Alert and oriented x3. No focal deficits noted. LABORATORY DATA: White count 15.4, hemoglobin 10.1, hematocrit 30.5, platelets are 293,000. Potassium 2.6, sodium 126, BUN 13, creatinine 0.5, calcium 8.8. ASSESSMENT AND PLAN: 1. Recurrent ovarian cancer: Chemotherapy on hold at this time. Once the patient has improved and discharged will restart treatment at that time. Continue to monitor. 2. Abdominal pain with ascites: Surgery placed catheter for long-term drainage solution. Continue to monitor closely. Continue recommendations per Primary Medical Team and surgery 3. Deep venous thrombosis prophylaxis: The patient to be out of bed as much as possible. Continue with heparin as ordered. Plan of care discussed with Dr. Razo. Dictated by CAMILA Huizar for Adrian Razo MD Patient seen and examined. As above. Patient complains of abdominal pain due to a worsening ascites. Long-term catheter drainage and Port-A-Cath planned for tomorrow. Continue pain management with morphine which we will convert to oral upon discharge. Adrian Razo M.D. MTDD
[2018-08-14] MEDS ORDERED: CALMOSEPTINE OINTMENT TOP ONE (17:43)
[2018-08-15] MEDS: NORCO-7.5 PO PRN ×3 (02:13→21:22)
[2018-08-15] MEDS: ZANTAC 50 MG in NS 50 ML IV SCH ×3 (02:13→16:13)
[2018-08-15] MEDS: ZOFRAN ODT PO SCH ×3 (06:08→15:40)
[2018-08-15 07:12] LABS: BASO# 0.06 X1000 (0.0-0.2); BASO% 0.4 % (0.0-0.8); EOS# 0.02 X1000 (0.0-0.7); EOS% 0.1 % (0.0-10.0); HEMATOCRIT 29.1 % (37.0-47.0); HEMOGLOBIN 9.7 g/dL (12.0-16.0); IMM GRAN# 0.16 X1000 (0.0-0.04); LYMPH# 1.28 X1000 (1.2-3.4); LYMPH% 7.9 % (20.5-51.1); MCH 33.6 PG (27-31); MCHC 33.3 g/dL (33-37); MCV 100.7 FL (81-99); MONO# 2.74 X1000 (0.11-0.59); MONO% 16.9 % (1.7-9.3); MPV 10.2 FL (7.4-10.4); NEUT# 11.93 X1000 (1.4-6.5); NEUT% 73.7 % (42.2-75.2); PLT 264 X1000 (130-400); RBC 2.89 XMIL (4.2-5.4); RDW 18.1 % (11.5-14.5); WBC 16.19 X1000 (4.8-10.8)
[2018-08-15 07:46] LABS: AGAP 16; ALB/GLOB RATIO 0.5; ALBUMIN 2.1 g/dL (3.5-5.0); ALKALINE PHOSPHATASE 421 U/L (32-104); BUN 9 mg/dL (8-22); CALCIUM 8.6 mg/dL (8.8-10.2); CHLORIDE 93 mmol/L (98-107); COSMO 252; CREATININE 0.5 mg/dL (0.5-0.9); ESTIMATED GFR > 60; GLUCOSE 93 mg/dL (70-104); GOT 25 U/L (10-30); GPT 12 U/L (10-36); POTASSIUM 4.1 mmol/L (3.5-5.1); SODIUM 126 mmol/L (136-145); TCO2 17 mmol/L (25-35); TOTAL BILIRUBIN 0.41 mg/dL (0.20-1.00); TOTAL PROTEIN 6.2 g/dL (6.3-8.3)
[2018-08-15] MEDS: HEPARIN SUBQ SCH ×2 (08:13→21:22)
[2018-08-15] MEDS: MORPHINE IV PRN ×2 (08:45→15:40)
[2018-08-15] MEDS: MIRALAX PO SCH (09:44)
[2018-08-15] MEDS: MEGACE PO SCH ×2 (09:45→21:22)
--- NOTE | 2018-08-15 10:51 | Diag Imaging Result Doc PS360 ---
ELBOW 2 VIEWS LEFT - 08/15/2018 INDICATION: fall TECHNIQUE: COMPARISON: None FINDINGS: Bones are intact and normally aligned. Joint spaces and soft tissues are clear. IMPRESSION: Negative exam. Electronically signed by Julius Calle 08/15/2018 10:49 AM
[2018-08-15] MEDS: LEVAQUIN 750 MG/D5W 750 MG/150 ML IVPB IV SCH (11:10)
[2018-08-15] MEDS: D5 NS 1,000 ML IV SCH (11:12)
[2018-08-15] MEDS: ROCEPHIN 2 GM in NS 50 ML IV SCH (11:14)
--- NOTE | 2018-08-15 14:52 | PROGRESS NOTE ---
DATE: 08/15/2018 SUBJECTIVE: The patient reports still complaining of abdominal pain and abdominal distention as per nursing staff. Dr. Parra from General Surgery declined to do procedure for today because of the elevated white cell count. The patient denies any cough or fever. It has not been documented any fever in the chart though. OBJECTIVE: Vital Signs: Temperature 98.5 degrees, heart rate 90, respiratory rate 16, blood pressure 135/53, O2 saturation 99% on room air. General: This is a chronically ill-appearing and cachectic 68-year-old female lying in bed in no acute distress. HEENT: Head is normocephalic and atraumatic. Mucous membranes are dry. Poor dentition. Neck: No JVD noted. No carotid bruits. No lymphadenopathy. No thyromegaly. Cardiovascular: S1 and S2 heard. No murmurs, gallops or rubs. Regular rate and rhythm. Respiratory: Some rales in both bases. The patient is not using any accessory muscles or having work of breathing. Abdomen: Soft and very distended with positive ascites. Bowel sounds decreased but present. Generalized tenderness to palpation. Extremities: Mild edema in both lower extremities. No clubbing or cyanosis. Peripheral pulses present in both legs. Neurologic: The patient is alert and oriented x3. Moves all 4 extremities. LABORATORY DATA: White cell count 16.19, hemoglobin 9.7, hematocrit 29.1, platelets 264,000. Sodium 126. The rest of the BMP is okay except for calcium at 8.6, with a low albumin at 2.1. ASSESSMENT AND PLAN: 1. Recurrent ovarian cancer. Dr. Razo was following with this patient. The patient has also peritoneal carcinomatosis. Plan is to put a Port-A-Cath and also a peritoneal catheter to drain the ascites, but unfortunately this procedure has not been done yet because of the elevated white cell count. We will continue to monitor this patient closely. 2. Left lower lobe pneumonia. The description from the x-ray describes infiltrates but considering her history of cancer and possible immunodeficiency we will treat that as pneumonia. So we are going to increase the dose to levofloxacin from 500 to 750 and add ceftriaxone 2 g IV q.24 hours and see if that helps this patient to get white cell count getting better. Then tomorrow or the day after she should be able to have those procedures done. 3. Deep vein thrombosis prophylaxis. The patient according to Dr. Razo has been restarted on warfarin and also Lovenox for bridge therapy with the same management. 4. Hyponatremia. We are going to start D5 W on this patient and check BMP daily. 5. Mild sinusitis. As we mentioned before hopefully tomorrow her labs to be better so she can get to be done. 6. Hyperkalemia, stable. cc: Robin Ricardo MD MTDD
--- NOTE | 2018-08-15 15:06 | HEMO/ONC PROGRESS NOTE ---
DATE: 08/15/2018 SUBJECTIVE: The patient is resting in bed. She states that her appetite is improved, and she is quite hungry and ready to try some solid food. Her abdomen, however, has continued to enlarge. It is very tight at this time and uncomfortable to her. She states that her pain medication is helping though. OBJECTIVE: Vital Signs: Temperature 98 degrees, heart rate 87, respiratory rate 18, blood pressure 140/51, saturating 98% on room air, with 8/10 pain. General: The patient is awake, lying in bed. No acute distress. HEENT: Anicteric. PERRLA. Mucous membranes moist. Cardiovascular: S1, S2 noted. Regular rate and rhythm. Respiratory: Bilateral breath sounds. Clear to auscultation. Abdomen: Distended and firm. Abdominal tenderness, diffuse, bowel sounds are hypoactive. Neurological: Alert and oriented x3. No focal deficits noted. Extremities: No lower edema noted. LABORATORY DATA: WBCs are 16.19, hemoglobin 9.7, hematocrit 29.1, platelets are 264,000. Sodium 126, creatinine 0.5. ASSESSMENT AND PLAN: 1. Recurrent ovarian cancer. Chemotherapy is on hold at this time. Once the patient is improved and discharged, we will restart treatment at that time. Continue to monitor. 2. Abdominal ascites. Surgery is looking at placing a catheter for long-term drainage solutions today. This should give the patient some relief. Continue to monitor closely. 3. Deep venous thrombosis prophylaxis. The patient should be getting out of bed as much as possible. Continue with the heparin as ordered. 4. Hyponatremia. Recommending gentle hydration with normal saline intravenous fluid to improve the patient's sodium. 5. Abdominal pain. Worsening ascites increases the patient's pain. Continue management with intravenous morphine, which we will convert to oral upon discharge. This plan of care was discussed with Dr. Razo. Dictated by CAMILA Catalan for Adrian Razo MD Patient seen and examined. As above. Discussed with Dr. Parra. Due to her leukocytosis, he wants to hold off the procedures. Chest x-ray reveals questionable infiltrate. Patient started on antibiotics. Adrian Razo M.D. cc: Adrian Razo MD [facility]
[2018-08-15] MEDS: D5W 1,000 ML IV SCH (15:40)
--- NOTE | 2018-08-15 18:25 | GENERAL SURGERY PROGRESS NOTE ---
DATE: 08/15/2018 SUBJECTIVE: Upon entering the room she was sitting on the floor by her bedside commode where she became unsteady. No fevers. No tachycardia. OBJECTIVE: On exam her abdomen is soft. There is no visible injury. She does say she has some elbow discomfort. X-ray has been obtained by the hospitalist, but no obvious lacerations or ecchymoses. LABORATORY: Her white count 16, hematocrit 29, platelets 264,000. Sodium remains low at 126. Potassium down to 4.1. ASSESSMENT AND PLAN: This is a 68-year-old female with metastatic ovarian cancer. She is very frail, very debilitated, and I worry towards the end stages of her disease. Given her fall and her persistent leukocytosis, I have advised against operation today. She will need ongoing medical optimization. This lady may ultimately benefit from p.r.n. paracenteses as opposed to indwelling catheters as I worry she could have an occult source of infection given her leukocytosis. We will follow her along. If she were to clinically improve, we could reconsider. She is only minimally symptomatic, although she does have a moderate amount of ascites on her scan. We will follow along. cc: Cesario Parra MD
[2018-08-16] MEDS: D5W 1,000 ML IV SCH ×2 (01:45→11:07)
[2018-08-16] MEDS: ZANTAC 50 MG in NS 50 ML IV SCH ×3 (02:06→16:50)
[2018-08-16] MEDS: NORCO-7.5 PO PRN ×3 (04:46→21:49)
[2018-08-16] MEDS: ZOFRAN ODT PO SCH ×3 (06:06→16:51)
[2018-08-16 09:42] LABS: BASO# 0.02 X1000 (0.0-0.2); BASO% 0.1 % (0.0-0.8); EOS# 0.03 X1000 (0.0-0.7); EOS% 0.2 % (0.0-10.0); HEMATOCRIT 29.4 % (37.0-47.0); HEMOGLOBIN 9.8 g/dL (12.0-16.0); IMM GRAN# 0.18 X1000 (0.0-0.04); IMM GRAN% 1.3 % (0.0-0.5); LYMPH# 1.16 X1000 (1.2-3.4); LYMPH% 8.2 % (20.5-51.1); MCHC 33.3 g/dL (33-37); MCV 96.1 FL (81-99); MONO% 18.4 % (1.7-9.3); NEUT# 10.17 X1000 (1.4-6.5); NEUT% 71.8 % (42.2-75.2); PLT 286 X1000 (130-400); RBC 3.06 XMIL (4.2-5.4); RDW 17.9 % (11.5-14.5); WBC 14.16 X1000 (4.8-10.8)
[2018-08-16 09:56] LABS: AGAP 12; BUN 5 mg/dL (8-22); CALCIUM 8.6 mg/dL (8.8-10.2); CHLORIDE 94 mmol/L (98-107); COSMO 256; CREATININE 0.6 mg/dL (0.5-0.9); ESTIMATED GFR > 60; GLUCOSE 102 mg/dL (70-104); POTASSIUM 3.8 mmol/L (3.5-5.1); SODIUM 129 mmol/L (136-145); TCO2 23 mmol/L (25-35)
[2018-08-16] MEDS: MORPHINE IV PRN ×2 (10:07→17:26)
[2018-08-16] MEDS: MEGACE PO SCH ×2 (10:07→21:49)
[2018-08-16] MEDS: MIRALAX PO SCH (10:13)
[2018-08-16] MEDS: HEPARIN SUBQ SCH ×2 (10:13→21:50)
[2018-08-16] MEDS: ROCEPHIN 2 GM in NS 50 ML IV SCH (10:16)
[2018-08-16] MEDS: LEVAQUIN 750 MG/D5W 750 MG/150 ML IVPB IV SCH (10:17)
--- NOTE | 2018-08-16 12:42 | HEMO/ONC PROGRESS NOTE ---
DATE: 08/16/2018 SUBJECTIVE: The patient is resting in bed. She states that she continues to have abdominal pain due to her distention. She states she is feeling okay, and has improved appetite. She is requesting to be off clear liquid diet. The patient states she is not getting out of bed very much at all. OBJECTIVE: Vital Signs: Temperature 98.3 degrees, heart rate 77, respiratory rate 16, blood pressure 132/47, saturating 96% on room air, 8/10 pain. General: The patient is awake, lying in bed, in no acute distress. Cardiovascular: Regular rate and rhythm. S1, S2 noted. Respiratory: Lungs are clear to auscultation after the patient coughs and clears her throat. Some rales noted in the bases. No work of breathing noted. Abdomen: Distended and firm. Abdominal tenderness is diffuse. Bowel sounds are hypoactive. Neurological: Alert and oriented x3. No focal deficits. Extremities: Moves all 4 extremities. LABORATORY DATA: Today's labs are pending. ASSESSMENT AND PLAN: 1. Recurrent ovarian cancer. Again, the therapy continues to be on hold at this time. We will see the patient in the office after discharge. 2. Abdominal ascites. We are hoping that Surgery will be able to place a long- term drainage catheter in the patient's abdomen. The patient has been recently diagnosed with pneumonia, and I agree with treating that first. 3. Left lower lobe pneumonia. According to the medical primary team, the x-ray describes infiltrates in the left lower lobe. They are considering this pneumonia. The patient is being treated with levofloxacin and ceftriaxone. We will monitor the white blood cell count. 4. Deep venous thrombosis prophylaxis. The patient should be getting out of bed as much as possible. Continue with heparin as ordered, and consider converting to warfarin and also Lovenox for bridge therapy. 5. Hyponatremia. NS gently if needed. Will monitor BMP today for improvement. 6. Abdominal pain. Worsening ascites is the cause of the patient's pain and discomfort. Continue management with intravenous morphine. Will convert to oral upon discharge. Dictated by CAMILA Catalan for Adrian Razo MD Patient seen and examined. As above. Discussed with Dr. Parra. Continue antibiotics for pneumonia. Await improvement of leukocytosis. Plan for anticipated procedures as soon as possible. Adrian Razo M.D. cc: Adrian Razo MD [facility]
--- NOTE | 2018-08-16 13:02 | PROGRESS NOTE ---
DATE: 08/16/2018 SUBJECTIVE: The patient reports abdominal distention and lung pain. OBJECTIVE: Vital Signs: Temperature 98.6 degrees, heart rate 91, respiratory rate 16, blood pressure 149/52, O2 saturation 96% on room air. General: This is a chronically ill-looking and cachectic, 68-year-old, female, lying in bed in no acute distress. Cardiovascular: S1, S2 heard. No murmurs, gallops, or rubs. Regular rate and rhythm. Respiratory: Some rales in both pulmonary bases. The patient is not using any accessory muscles or having work of breathing. Abdomen: Soft, very distended with possible ascites. Bowel sounds present, but decreased generalized tenderness to palpation. Extremities: Mild edema in both lower extremities. No clubbing or cyanosis noted. Peripheral pulses present in both legs. Neurological: Patient alert and oriented x3. Moves 4 extremities. LABORATORY DATA: White cell count 14.63, hemoglobin 9.8, hematocrit 29.4, platelets 286,000. Sodium 129. ASSESSMENT AND PLAN: 1. Ovarian cancer with recurrent paracentesis with peritoneal carcinomatosis. The patient was admitted to the hospital for this condition. Dr. Razo from Oncology is following this patient. We consulted General Surgery to place a peritoneal catheter to help relieve this frequent reaccumulation of ascitic fluid, but Dr. Parra thinks that this patient is so weak to undergo that procedure. He has recommended continuous paracenteses. At this point, will follow recommendations. 2. Left lower lobe pneumonia. The x-ray, as we mentioned before, describes some infiltrates in the left lower lobe, and considering comorbidities and history, we prefer to treat it as a pneumonia. Currently, this patient is receiving levofloxacin 750 mg intravenously every 24 hours, as well as ceftriaxone. White cell count is getting better. Will continue to monitor CBC daily. 3. Deep vein thrombosis prophylaxis. The patient is on warfarin and Lovenox. We are checking INR daily. 4. Hyponatremia. Will continue with normal saline. 5. Mild sinusitis. Aware. 6. Hyperkalemia, resolved. 7. Disposition. I think, at this point, the patient is not sure if she wanted to continue receiving active chemotherapy. My opinion is that this patient is very debilitated and I do not think is a candidate for continued active chemotherapy. In any case, I think this patient needs to go to rehab facility, and after she is discharged from there, will see if this patient is still a candidate for chemotherapy or not. roundhouse worker will be consulted. cc: Robin Ricardo MD
[2018-08-17] MEDS: ZANTAC 50 MG in NS 50 ML IV SCH ×3 (03:55→20:29)
[2018-08-17] MEDS: MORPHINE IV PRN ×4 (04:08→17:54)
[2018-08-17] MEDS: ZOFRAN ODT PO SCH ×3 (06:24→17:54)
[2018-08-17 07:27] LABS: BASO# 0.02 X1000 (0.0-0.2); BASO% 0.1 % (0.0-0.8); EOS# 0.01 X1000 (0.0-0.7); EOS% 0.1 % (0.0-10.0); HEMATOCRIT 31.8 % (37.0-47.0); HEMOGLOBIN 10.5 g/dL (12.0-16.0); IMM GRAN# 0.21 X1000 (0.0-0.04); IMM GRAN% 1.6 % (0.0-0.5); LYMPH# 1.01 X1000 (1.2-3.4); LYMPH% 7.5 % (20.5-51.1); MCH 31.8 PG (27-31); MCV 96.4 FL (81-99); MONO# 2.34 X1000 (0.11-0.59); MONO% 17.3 % (1.7-9.3); MPV 10.3 FL (7.4-10.4); NEUT# 9.92 X1000 (1.4-6.5); NEUT% 73.4 % (42.2-75.2); PLT 317 X1000 (130-400); RDW 18.2 % (11.5-14.5); WBC 13.51 X1000 (4.8-10.8)
[2018-08-17 07:43] LABS: AGAP 14; BUN 4 mg/dL (8-22); CALCIUM 8.4 mg/dL (8.8-10.2); CHLORIDE 96 mmol/L (98-107); COSMO 260; CREATININE 0.6 mg/dL (0.5-0.9); ESTIMATED GFR > 60; GLUCOSE 81 mg/dL (70-104); POTASSIUM 3.9 mmol/L (3.5-5.1); SODIUM 132 mmol/L (136-145); TCO2 22 mmol/L (25-35)
[2018-08-17 07:44] LABS: LYMPHS 10 % (21-51); MONO 4 % (1-9); SEGS 84 % (42-75)
[2018-08-17] MEDS: ROCEPHIN 2 GM in NS 50 ML IV SCH (10:05)
[2018-08-17] MEDS: HEPARIN SUBQ SCH ×2 (10:06→20:29)
[2018-08-17] MEDS: MIRALAX PO SCH (10:06)
[2018-08-17] MEDS: MEGACE PO SCH ×2 (10:06→20:28)
[2018-08-17] MEDS: LEVAQUIN 750 MG/D5W 750 MG/150 ML IVPB IV SCH (11:25)
[2018-08-17] MEDS: ZOFRAN IV PRN (11:26)
--- NOTE | 2018-08-17 12:15 | PROGRESS NOTE ---
DATE: 08/17/2018 SUBJECTIVE: The patient reports still some abdominal distention and abdominal pain as well. Denies any other complaints. OBJECTIVE: Vital Signs: Temperature 98.4 degrees, heart rate 93, respiratory rate 20, blood pressure 152/56, O2 saturation 96% on room air. General: This is a chronically ill-appearing and cachectic, 68-year-old, female, lying in bed in no acute distress. Cardiovascular: S1, S2 heard. No murmurs, gallops, or rubs. Regular rate and rhythm. Respiratory: right base. This patient is not using any accessory muscles or having work of breathing. Abdomen: Soft, mildly distended with ascites clearly noted. Bowel sounds present, but diminished. No organomegaly noted. Extremities: Mild edema in both lower extremities. No clubbing or cyanosis noted. Peripheral pulses present. Neurologic: The patient is alert and oriented x3. Moves all 4 extremities. LABORATORY DATA: White cell count 13.51, hemoglobin 10.5, hematocrit 31.8, platelets 317,000. BMP remarkable for sodium of 132. ASSESSMENT AND PLAN: 1. Ovarian cancer with recurrent paracenteses with peritoneal carcinomatosis. Plan when this patient was admitted to the hospital was to place a Port-A-Cath and also a peritoneal catheter to help her relieve this frequent reaccumulation of the ascitic fluid. Apparently, Dr. Razo still wanted to proceed with this catheter. I think it is reasonable considering her history of recurrent paracentesis. 2. Left lower lobe pneumonia. Clinically, this patient is doing fine, not requiring any oxygen supplementation, and white cell count is mildly elevated. I think for tomorrow, this patient will be clinically stable to undergo any procedure needed. She is on Levaquin 750 mg intravenously every 24 hours, and ceftriaxone 2 grams intravenously every 24 hours as well. At this point, as we mentioned before, she is stable. 3. Deep vein thrombosis prophylaxis. The patient is on warfarin and Lovenox. 4. Hyponatremia, getting better. Will continue with normal saline. 5. Disposition. I think at this point, will continue treating pneumonia. The patient is getting better from left lower lobe pneumonia. Her white cell count is almost back to normal. The patient is not requiring any oxygen supplementation, so in case Surgery decides to proceed with that peritoneal catheter placement, I think it should be fine from a medical standpoint. cc: Robin Ricardo MD MTDD
--- NOTE | 2018-08-17 13:59 | HEMO/ONC PROGRESS NOTE ---
DATE: 08/17/2018 SUBJECTIVE: The patient is he is lying in bed and appears uncomfortable. She states that her abdominal pain is much worse. She has no appetite this morning. Her distention is causing her a significant amount of discomfort. She continues to say that nursing staff is not getting her out of bed at all. PHYSICAL EXAMINATION: Temperature 98.4, pulse rate 93, respiratory rate 20, blood pressure 152/56, Is 96% on room air. She is in 9/10 pain.General: The patient appears uncomfortable in the bed. Lungs: Some congestion noted at the pulmonary bases. Lungs otherwise clear to auscultation. Cardiovascular: S1, S2 noted. No murmurs, gallops or rubs. Abdomen: Very distended and tender all over. Remains malleable. Bowel sounds are hypoactive. Neurologic: Alert and oriented x 3. No focal deficits. Extremities: +1 pitting edema to bilateral lower extremities. Able to move all 4 extremities. LABORATORY DATA: WBC 13.51, hemoglobin 10.5, hematocrit 31.8, platelet count 317,000. Sodium 132, potassium 3.9, creatinine 0.6, calcium 8.4. ASSESSMENT AND PLAN: 1. Recurrent ovarian cancer. We will hold therapy until patient is able to come to the clinic outpatient. 2. Abdominal ascites. Patient is still in need of a long-term drainage solution or at least a therapeutic paracentesis today. 3. Possible left lower lobe pneumonia. We are monitoring her white blood cell count. Continue to treat with antibiotics. 4. DVT prophylaxis, please get the patient out of bed and into the chair as much as possible today. Continue heparin as ordered. Convert to warfarin 1-2mg before discharge. 5. Hyponatremia. Continue IV fluids to improve hyponatremia. 6. Abdominal pain. Worsening ascites continues to cause the patient's pain and discomfort. Continue management with intravenous morphine. Will convert to oral upon discharge. Dictated by CAMILA Catalan for Adrian Razo MD cc: Adrian Razo MD [facility]
[2018-08-17] MEDS: NORCO-7.5 PO PRN (20:28)
[2018-08-18] MEDS: MORPHINE IV PRN ×2 (01:55→22:41)
[2018-08-18] MEDS: NORCO-7.5 PO PRN ×3 (04:18→17:24)
[2018-08-18] MEDS: ZANTAC 50 MG in NS 50 ML IV SCH ×3 (04:19→20:09)
[2018-08-18] MEDS: ZOFRAN ODT PO SCH ×3 (06:12→17:24)
[2018-08-18 07:32] LABS: BASO# 0.03 X1000 (0.0-0.2); BASO% 0.2 % (0.0-0.8); EOS# 0.03 X1000 (0.0-0.7); EOS% 0.2 % (0.0-10.0); HEMATOCRIT 28.7 % (37.0-47.0); HEMOGLOBIN 9.6 g/dL (12.0-16.0); IMM GRAN# 0.26 X1000 (0.0-0.04); IMM GRAN% 1.7 % (0.0-0.5); LYMPH# 1.44 X1000 (1.2-3.4); LYMPH% 9.2 % (20.5-51.1); MCH 32.2 PG (27-31); MCHC 33.4 g/dL (33-37); MCV 96.3 FL (81-99); MONO# 2.22 X1000 (0.11-0.59); MONO% 14.2 % (1.7-9.3); MPV 10.2 FL (7.4-10.4); NEUT# 11.66 X1000 (1.4-6.5); NEUT% 74.5 % (42.2-75.2); PLT 330 X1000 (130-400); RBC 2.98 XMIL (4.2-5.4); RDW 18.2 % (11.5-14.5); WBC 15.64 X1000 (4.8-10.8)
[2018-08-18 07:40] LABS: AGAP 13; BUN 7 mg/dL (8-22); CALCIUM 8.9 mg/dL (8.8-10.2); CHLORIDE 92 mmol/L (98-107); COSMO 255; CREATININE 0.6 mg/dL (0.5-0.9); ESTIMATED GFR > 60; GLUCOSE 68 mg/dL (70-104); SODIUM 129 mmol/L (136-145); TCO2 24 mmol/L (25-35)
[2018-08-18 07:48] LABS: LYMPHS 7 % (21-51); MONO 13 % (1-9); SEGS 80 % (42-75)
[2018-08-18] MEDS: ROCEPHIN 2 GM in NS 50 ML IV SCH (09:19)
[2018-08-18] MEDS: MIRALAX PO SCH (09:19)
[2018-08-18] MEDS: MEGACE PO SCH ×2 (09:19→20:09)
[2018-08-18] MEDS: HEPARIN SUBQ SCH ×2 (09:20→20:09)
[2018-08-18] MEDS: LEVAQUIN 750 MG/D5W 750 MG/150 ML IVPB IV SCH (09:44)
--- NOTE | 2018-08-18 11:19 | GENERAL SURGERY PROGRESS NOTE ---
DATE: 08/18/2018 SUBJECTIVE: Discussed case briefly with Dr. Parra. He was waiting for leukocytosis to improve. It essentially remained stable. She still has some electrolyte abnormalities based off of yesterday's labs, although they are improving. Dr. Parra will be out of town until Tuesday, so we could potentially if she is getting symptomatic get an ultrasound-guided paracentesis today to try to release some of her pressure, and have Dr. Parra reassess on Tuesday if he wants to put a long- term PleurX catheter into her abdomen. cc: Sam Tierney MD
[2018-08-18 12:27] LABS: INR 1.02; PROTIME 14.2 Seconds (11.0-16.0)
[2018-08-18 12:28] LABS: PTT 37.1 Seconds (22.3-41.8)
--- NOTE | 2018-08-18 13:29 | Diag Imaging Result Doc PS360 ---
EXAM: CHEST-2 VIEWS HISTORY: left lower lobe pna TECHNIQUE: Chest two views COMPARISON: 08/14/2018 FINDINGS: There is a small left pleural effusion with basilar atelectasis. There may be small underlying infiltrates as well. No cardiomegaly. No pulmonary edema. No right-sided pleural effusion. Right lung is clear. IMPRESSION: Mild interval worsening. Electronically signed by Matt Butler 08/18/2018 1:27 PM
--- NOTE | 2018-08-18 13:47 | PROGRESS NOTE ---
DATE: 08/18/2018 SUBJECTIVE: Patient reports complaining of abdominal pain and abdominal distention. No nausea or vomiting though. OBJECTIVE: Vital Signs: Temperature 98.4 degrees, heart rate 64, respiratory 16, blood pressure 139/59 and O2 saturation 99% on room air. General: This is a chronically ill-appearing and cachectic 68-year-old female lying in bed, in no acute distress. Cardiovascular: S1, S2 heard. No murmurs, gallops, or rubs. Regular rate and rhythm. Respiratory: Clear bilaterally to auscultation. No work of breathing or using accessory muscles. Abdomen: Soft. Distended with ascites. Bowel sounds present but diminished. No organomegaly noted. Extremities: Mild edema in both lower extremities. No clubbing or cyanosis noted. Peripheral pulses present in both legs. Neurological: Patient alert and oriented x3. Moves all 4 extremities. LABORATORY DATA: White cell count 15.64, hemoglobin 9.6, hematocrit 28.7, and platelets 330,000. ASSESSMENT AND PLAN: 1. Ovarian cancer with recurrent ascites and peritoneal carcinomatosis. Aware. Unfortunately, surgery thinks that this patient is a candidate for placing any peritoneal catheter because of leukocytosis. The leukocytosis is reactive to pain. Also, I do not think his leukocytosis is reflective of pneumonia because in the imaging it is actually a small infiltrate that we have found in this patient. In any case what I am going to do is to repeat an x-ray. We will continue to check the CBC daily because surgery is not going to put any catheter today I am going to do paracentesis ultrasound-guided. We will go from there. 2. Left lower lobe pneumonia. Clinically, patient is stable not complaining of any chest pain or shortness of breath or fever. White cell count is slightly elevated today, but I do not think this is a condition that will preclude to perform any surgery at this point, at least from a medical standpoint. Currently, she is on Levaquin 750 mg IV q.24 hours and ceftriaxone 2 g IV q.24 hours as well. We will continue with the same. 3. Deep vein thrombosis. Patient is on warfarin and Lovenox. 4. Hyponatremia aware. We will continue with normal saline. 5. Disposition. At this point, I have talked with Dr. Razo about plans for this patient. After paracentesis if tomorrow patient is okay, I think we can let her go and also have this Port-A- Cath placement as an outpatient as well. cc: Robin Ricardo MD
--- NOTE | 2018-08-18 15:35 | HEMO/ONC PROGRESS NOTE ---
DATE: 08/18/2018 SUBJECTIVE: Ms. Kirkland is awake, sitting up in bed and eating breakfast. She appears better today. States she is feeling good today. Her abdominal pain is more tolerable, and she has increased appetite. She is eating solid food today and tried to drink some of her protein shakes. OBJECTIVE: Vital Signs: Temperature 98.4 degrees, pulse rate 64, respiration rate 16, blood pressure 139/59, satting 99% on room air, 5/10 abdominal pain. General: On physical examination, the patient is awake, groomed and sitting up in bed. Cardiovascular: S1, S2 heard. Regular rate and rhythm. Respiratory: Some congestion noted at the right pulmonary base. Lungs otherwise clear to auscultation. Abdomen: Remains distended and tender all over. Bowel sounds are hypoactive. Neurological: Alert and oriented x3. No focal deficits. Extremities: Mild edema to bilateral lower extremities. LABORATORY DATA: WBC is 15.64, hemoglobin 9.6, hematocrit 28.7, platelet count 330. Sodium 129, potassium 4.0, calcium 8.9, creatinine 0.6. ASSESSMENT/PLAN: 1. Recurrent ovarian cancer: We will hold therapy until the patient is able to come to the clinic as an outpatient. 2. Abdominal ascites and pain: The patient is still in need of a long-term drainage solution, or at least a therapeutic paracentesis before discharge. Her ascites is continuing to be the cause of the patient's pain and discomfort. Consider converting to oral pain medications in preparation for discharge. 3. Possible left lower lobe pneumonia: Continuing to monitor her white blood count. Continue to treat with antibiotics. The patient could benefit from a spirometer. The patient would benefit from getting out of bed as ordered. 4. Deep vein thrombosis prophylaxis: Please get the patient out of bed and into the chair as much as possible today. Continue heparin as ordered. 5. Hyponatremia. The patient would benefit from intravenous normal saline to slowly improve her sodium level. Dictated by CAMILA Catalan for Adrian Razo MD Patient seen and examined. As above. While we wait for permanent ascites drainage, proceed with ultrasound-guided large volume paracenteses today. Continue current management. Discussed with Dr. Toscano. Adrian Razo M.D. cc: Adrian Razo MD [facility]
--- NOTE | 2018-08-18 16:57 | Diag Imaging Result Doc PS360 ---
EXAM: US ABD PARACENTESIS W S/I 08/18/2018 HISTORY: recurrent ascitis TECHNIQUE: Ultrasound-guided paracentesis COMMENT: The risks and benefits of the procedure were discussed with the patient and she agreed to the procedure. Following sterile preparation the skin anterolaterally on the right and administration 1% lidocaine to the skin and deeper soft tissues, the thoracentesis catheter was placed and subsequently 800 mL of grossly bloody fluid was aspirated. There are no immediate complications. IMPRESSION: Successful ultrasound-guided paracentesis. Electronically signed by Arpan Astorga 08/18/2018 4:55 PM
[2018-08-18] MEDS: ZOFRAN IV PRN (22:41)
[2018-08-19] MEDS: NORCO-7.5 PO PRN ×2 (00:52→06:21)
[2018-08-19] MEDS: MORPHINE IV PRN (04:51)
[2018-08-19] MEDS: ZANTAC 50 MG in NS 50 ML IV SCH (04:52)
[2018-08-19] MEDS: ZOFRAN ODT PO SCH ×2 (06:21→10:24)
[2018-08-19 07:41] LABS: AGAP 13; BUN 7 mg/dL (8-22); CALCIUM 8.5 mg/dL (8.8-10.2); CHLORIDE 94 mmol/L (98-107); COSMO 256; CREATININE 0.6 mg/dL (0.5-0.9); ESTIMATED GFR > 60; GLUCOSE 78 mg/dL (70-104); POTASSIUM 4.2 mmol/L (3.5-5.1); SODIUM 129 mmol/L (136-145); TCO2 22 mmol/L (25-35)
[2018-08-19 07:55] LABS: BASO# 0.03 X1000 (0.0-0.2); BASO% 0.2 % (0.0-0.8); EOS# 0.01 X1000 (0.0-0.7); EOS% 0.1 % (0.0-10.0); HEMATOCRIT 29.9 % (37.0-47.0); HEMOGLOBIN 9.9 g/dL (12.0-16.0); IMM GRAN# 0.32 X1000 (0.0-0.04); IMM GRAN% 2.2 % (0.0-0.5); LYMPH# 0.98 X1000 (1.2-3.4); LYMPH% 6.8 % (20.5-51.1); MCH 31.5 PG (27-31); MCHC 33.1 g/dL (33-37); MCV 95.2 FL (81-99); MONO# 2.05 X1000 (0.11-0.59); MONO% 14.3 % (1.7-9.3); MPV 10.5 FL (7.4-10.4); NEUT# 10.95 X1000 (1.4-6.5); NEUT% 76.4 % (42.2-75.2); PLT 316 X1000 (130-400); RBC 3.14 XMIL (4.2-5.4); RDW 17.9 % (11.5-14.5); WBC 14.34 X1000 (4.8-10.8)
[2018-08-19 08:01] VITALS: BP 133/62
[2018-08-19 09:44] LABS: BANDS 4 % (0-1); LYMPHS 12 % (21-51); MONO 16 % (1-9); SEGS 66 % (42-75)
[2018-08-19] MEDS: MEGACE PO SCH (10:23)
[2018-08-19] MEDS: MIRALAX PO SCH (10:23)
[2018-08-19] MEDS: HEPARIN SUBQ SCH (10:23)
[2018-08-19] MEDS: LEVAQUIN 750 MG/D5W 750 MG/150 ML IVPB IV SCH (10:23)
[2018-08-19] MEDS: ROCEPHIN 2 GM in NS 50 ML IV SCH (10:24)
--- NOTE | 2018-08-19 16:04 | DISCHARGE SUMMARY ---
ADMISSION DATE: 08/08/2018 DISCHARGE DATE: 08/19/2018 ADMITTING DIAGNOSES: 1. Metastatic ovarian cancer, followed by Dr. Razo. 2. Abdominal pain. 3. Recent diarrhea and constipation. 4. Dehydration. 5. Failure to thrive and malnutrition. DISCHARGE DIAGNOSES: 1. Ovarian cancer with recurrent ascites and peritoneal carcinomatosis. 2. Leukocytosis. 3. Left lower lobe pneumonia. 4. Deep venous thrombosis. 5. Hyponatremia. 6. Mild sinusitis. CONSULTATIONS: 1. Dr. Adrian Razo. 2. Dr. Lonnie Parra. SURGERIES OR PROCEDURES: None. HOSPITAL COURSE: On 08/08/2018, Ms. Sara Kirkland, a 68-year-old female with a medical history of metastatic ovarian cancer, presents to the floor as a direct admit from Dr. Razo's office. Apparently during the past month, she had developed abdominal distention, pain and constipation, but 4 to 5 days prior to admission had developed diarrhea. Anorexia and nausea for 2 weeks prior to admit and only started to eat some solid foods prior to admit. KUB of the abdomen did not show any type of impaction. Abdominal pain was treated with morphine. Dr. Razo was consulted for the colon cancer. She received IV fluids for dehydration. She was started on Clinimix for malnutrition. The next day, she had paracentesis ultrasound with 3.9 L of dark [place] fluid aspirated. The day after paracentesis, she felt much better, still had not gained her appetite back yet. Still had some abdominal pain. The following day, she started feeling like her abdomen was getting full again. She continued on Clinimix, was encouraged daily for more p.o. intake as far as nutrition was concerned. Surgery was consulted for a Port-A-Cath placement and to place a permanent abdominal drain since the ascites returned so fast. General Surgery did feel like she would benefit from having a tunneled peritoneal catheter placed. On 08/13/2018, she had abdominopelvic CT performed which showed slightly worsened malignant ascites, new left pleural effusion, cholelithiasis, anasarca. Chest x-ray was performed, and there was a small left basilar infiltrate, that was done on 08/14/2018. But she had worsening in her electrolytes. Her white blood cell count had elevated, and Surgery felt it would be better if they optimized her treatment and was rescheduled for 08/15/2018. So Levaquin was started, even though it felt like the pleural fluid was the cause of the infiltrates on the left lower lobe area. On 08/15/2018, she had an x- ray of her left elbow secondary to a fall, and it was a negative exam. By 08/15/2018, when she was found sitting on the floor next to her bedside commode, Dr. Parra saw her and felt like since she continued with elevated white blood cell count and how debilitated she was, he felt like it may possibly be better to do p.r.n. paracentesis as opposed to having an indwelling catheter. On 08/16/2018, she had a little bit of improvement in her diet, but then it resumed to no appetite at all the next day. On 08/18/2018, she had paracentesis ultrasound guided and got 800 mL of grossly bloody fluid. She had chest x-ray repeat after that with left pleural effusion still there with some atelectasis. She is going to be discharged home today, electrolytes improved. She had 2 paracenteses while she was here, 3.9 L on the first one and 800 mL on the second one. DISCHARGE VITAL SIGNS: Temperature 97.9, heart rate 88, respiratory rate 18, blood pressure 133/62, O2 saturation 94% on room air. DISCHARGE LAB DATA: White blood cells 14,000, hemoglobin 9, hematocrit 29, platelet count 316. Sodium 129, potassium 4.2, BUN is 7, creatinine 0.6, glucose 78, calcium 8.5. IMAGING: On 08/08/2018, abdominal x-ray with nonspecific abdomen. On 08/09/2018, paracentesis ultrasound with 3.9 L removed. On 08/13/2018, abdominopelvic CT with slightly worsened malignant ascites, new left pleural effusion, cholelithiasis and anasarca. On 08/14/2018, chest x-ray with small left basilar infiltrate. On 08/15/2018, left elbow x-ray is negative exam. On 08/18/2018, paracentesis ultrasound guided with 800 mL removed. On 08/18/2018, chest x-ray with interval worsening of small left pleural effusion and basilar atelectasis. DISCHARGE MEDICATIONS: 1. Levaquin 750 mg p.o. daily for 10 days. 2. Megace 40 mg twice daily. 3. MiraLAX 17 g p.o. daily. 4. [place] 7.5 one tab p.o. every 4 hours p.r.n. 5. Zofran 4 mg before meals. DISCHARGE DIET: GI soft. DISCHARGE ACTIVITY: As tolerated. DISCHARGE INSTRUCTIONS: If you worsen, please seek medical attention with any signs or symptoms of infection such as fever, chills, coughing up any colors, excessive weight gain or loss, any signs or symptoms of bleeding. DISCHARGE DISPOSITION: Home. Dictated by CAMILA Rodas for Robin Ricardo MD Addendum: Patient seen and examined by myself. Agree with CAMILA. It reflects my assessment and plan. Patient is being discharged in stable condition. Will be seen by primary care oncologist in a week for possible port a cath and peritoneal catheter placement as outpatient. cc: CAMILA Rodas MD MTDD
== END 2018-08-19 11:35 | disposition home or self-care (01) | DRG 374 ==
LOC: SUATTDRO 14:52 → DIRADM 14:52 → 3N 15:27
PROVIDERS: ATTEND Internal Medicine
CPT/HCPCS: 49083; 71010; 71020; 71045; 71046; 73070; 74019; 74020; 74176; 80048; 80053; 81001; 83735; 85025; 85027; 85610; 85730; 87040; 87077; 87088; 94640; 94761; 97162; 97530; A9270; J0696; J1644; J1650; J1956; J2270; J2405; J2780; J7030; J7042; J7070; S0179

== ENCOUNTER 2018-08-23 11:17 | Inpatient (IN) ==
[2018-08-23] MEDS ORDERED: NS 1,000 ML IV ONE (12:52)
[2018-08-23] MEDS ORDERED: ZOFRAN IV ONE (12:52)
[2018-08-23] MEDS ORDERED: DILAUDID IV ONE (12:52)
[2018-08-23 12:58] LABS: BASO# 0.04 X1000 (0.0-0.2); BASO% 0.2 % (0.0-0.8); EOS# 0.01 X1000 (0.0-0.7); EOS% 0.1 % (0.0-10.0); HEMATOCRIT 39.7 % (37.0-47.0); HEMOGLOBIN 13.4 g/dL (12.0-16.0); IMM GRAN# 0.56 X1000 (0.0-0.04); IMM GRAN% 3.2 % (0.0-0.5); LYMPH% 8.6 % (20.5-51.1); MCH 31.8 PG (27-31); MCHC 33.8 g/dL (33-37); MCV 94.1 FL (81-99); MONO# 1.06 X1000 (0.11-0.59); MONO% 6.1 % (1.7-9.3); NEUT# 14.21 X1000 (1.4-6.5); NEUT% 81.8 % (42.2-75.2); PLT 411 X1000 (130-400); RBC 4.22 XMIL (4.2-5.4); RDW 18.2 % (11.5-14.5); WBC 17.38 X1000 (4.8-10.8)
[2018-08-23 13:11] LABS: ESTIMATED GFR > 60
[2018-08-23 13:13] LABS: AGAP 18; ALB/GLOB RATIO 0.8; ALBUMIN 3.3 g/dL (3.5-5.0); ALKALINE PHOSPHATASE 364 U/L (32-104); BUN 10 mg/dL (8-22); CALCIUM 9.4 mg/dL (8.8-10.2); CHLORIDE 89 mmol/L (98-107); COSMO 259; CREATININE 0.6 mg/dL (0.5-0.9); GLUCOSE 79 mg/dL (70-104); GOT 28 U/L (10-30); GPT 11 U/L (10-36); POTASSIUM 4.1 mmol/L (3.5-5.1); SODIUM 130 mmol/L (136-145); TCO2 23 mmol/L (25-35); TOTAL BILIRUBIN 0.64 mg/dL (0.20-1.00); TOTAL PROTEIN 7.7 g/dL (6.3-8.3)
--- NOTE | 2018-08-23 14:07 | PROVIDER DOCUMENTATION ---
This chart was entered by Stanley Carrion Scribe, acting as scribe for Baldo Verduzco MD. HPI-General Adult - General Chief Complaint: Generalized Pain Stated Complaint: FLUID BUILD UP Time Seen by Provider: 08/23/18 12:24 Source: patient, family Allergies/Adverse Reactions: Patient Allergies Allergy/AdvReac Type Severity Reaction Status Date / Time No Known Allergies Allergy Verified 08/23/18 11:27 Home Medications: Home Medication List Medication Instructions Recorded Confirmed Last Taken Type Hydrocodone/APAP 7.5 mg/325 mg 1 tab PO Q4H PRN PRN #40 tab 08/19/18 Unknown Rx [[place]-7.5] Levofloxacin [Levaquin] 750 mg PO DAILY #10 tab 08/19/18 Unknown Rx Megestrol Acetate [Megace] 40 mg PO BID #60 tab 08/19/18 Unknown Rx Ondansetron Odt [Zofran Odt] 4 mg PO AC #90 tab 08/19/18 Unknown Rx Polyethylene Glycol 3350 [Miralax] 17 gm PO DAILY powder, packet 08/19/18 Unknown Rx - History of Present Illness -Gen Adult Nature of Presenting Problems: Pt is a 68 yof who presents to the ED with her family with a CC of fluid build- up. Pt complains of not being able to walk. Pt's daughter states that the pt was admitted to the hospital two weeks ago for the fluid build-up on her abdomen. The pt's daughter states that she was supposed to get a port line added to aid in the fluid draining, but it was never done. The pt's daughter states that she was sent home on Tuesday with [place] for pain relief, but it has not helped. The pt's daughter states a hx of stomach cancer. The pt's daughter also states the pt has had frequent falls, a low food and drink intake, and the pt is not wanting to take her medications at home other than the [place]. Location of Pain/Injury: reports: abdomen Pain Radiation: reports: no radiation Quality of Pain: reports: fullness, pressure Onset/Duration: reports: 1 week ago Timing: reports: still present Associated Symptoms: reports: loss of appetite, malaise, trouble walking. denies: anxiety, back/neck pain, diarrhea, fever/chills, shortness of breath, syncope, vomiting Similar Symptoms Previously?: Yes Recently seen or treated by another doctor?: Yes Review of Systems - Adult - REVIEW OF SYSTEMS - ADULT Constitutional: reports: see HPI. denies: chills, fever, fatique, night sweats, weight gain Eyes: reports: no symptoms reported Ears, Nose, Mouth & Throat: reports: no symptoms reported Cardiovascular: reports: no symptoms reported Respiratory: reports: no symptoms reported Gastrointestinal: reports: abdominal pain, nausea, poor appetite. denies: hematemesis, diarrhea, difficulty swallowing, rectal bleeding, vomiting Genitourinary: reports: no symptoms reported Musculoskeletal: reports: see HPI, muscle weakness, other (Trouble walking) Integumentary: reports: no symptoms reported Neurological: reports: no symptoms reported Psychiatric: reports: no symptoms reported Endocrine: reports: no symptoms reported Hematologic/Lymphatic: reports: no symptoms reported Allergic/Immunologic: reports: no symptoms reported All Other Systems: Reviewed and Negative Past History - Adult - PAST MEDICAL HISTORY-ADULT Review of Records: reports: Old Records Reviewed, Nursing Assessment Review, Medications Reviewed, Social history reviewed & non-contributory. Major Childhood Illnesses: reports: denies history Cardiovascular: reports: denies history Respiratory: reports: denies history Gastrointestinal: reports: denies history Obstetrical/Gynecological: reports: uterine/ovarian cancer Genitourinary: reports: denies history Musculoskeletal: reports: denies history Neurological: reports: denies history Endocrine/Immune: reports: denies history Other Conditions: reports: denies history - PRIOR SURGERIES/PROCEDURES Surgical/Procedure History: reports: hysterectomy - IMMUNIZATION STATUS Childhood Immunizations: See Nurse Assessment Flu Vaccine: See Nurse Assessment - FAMILY HISTORY Family History: reviewed, not pertinent - SOCIAL HISTORY Smoking: cigarettes, other (PPD unknown) Substance Use: denies Alcohol Use Frequency: never Physical Exam-General - PHYSICAL EXAM-ADULT Initial Vital Signs Reviewed: Yes - CONSTITUTIONAL General Appearance: appears well, alert, mild distress - EYES Eyes: PERRL/EOMI. negative: meningismus, photophobia, sclera injected - NECK Neck: non-tender, full range of motion. negative: limited range of motion, lymphadenopathy, meningismus, trachial deviation - RESPIRATORY Respiratory: chest non-tender, lungs clear, normal breath sounds, no pleuratic chest pain, no respiratory distress, no accessory muscle use. negative: respira tory distress, decreased breath sounds, accessory muscle use, crackles, rales - CARDIOVASCULAR Cardiovascular: normal peripheral pulses, no edema, no gallop, no JVD, no murmur , tachycardia (Mildly). negative: bradycardia, diastolic murmur, systolic murmur - GASTROINTESTINAL (ABDOMEN) Abdominal Exam: normal bowel sounds, soft, distended, tenderness. negative: non tender, guarding, rebound, hernia, mass - MUSCULOSKELETAL Back Exam: negative: decreased range of motion, ecchymosis, kyphosis, swelling Extremity: normal range of motion, non-tender. negative: calf tenderness, deformity, erythema, inflammation - SKIN Integumentary: normal color, normal turgor, warm/dry. negative: abrasion(s), jaundice, laceration(s), mottled, pallor, petechiae - NEUROLOGIC Neurologic: grossly normal, no motor/sensory deficits. negative: aphasia, facial droop, focal weakness - PSYCHIATRIC Psych/Mental Status: normal mood/affect, normal thought content, normal thought process, oriented x 3. negative: disoriented x 3, anxious, disheveled, depressed affect, paranoid Progress - PLAN OF CARE/RESULTS Progress/Plan/Lab Results: Vital Signs - 8 hr 08/23/18 11:24 Temperature 97.5 F L Pulse Rate 128 H Respiratory Rate 18 Blood Pressure 112/79 O2 Sat by Pulse Oximetry 99 Orders Category Date Time Status CBC WITH ELECTRONIC DIFF [HEME] Stat Lab 08/23/18 12:38 Ordered COMPREHENSIVE METABOLIC PANEL [CHEM] Stat Lab 08/23/18 12:38 Ordered UA [URINALYSIS] [URINALYSIS] Stat Lab 08/23/18 12:26 Uncollected Result Diagrams: 08/23/18 12:35 08/23/18 12:35 - CONSULTS/PCP/HOSPITALIST Notification #1 *Consult/PCP/Hospitalist*: Dr. Luz (Hospitalist) Time Discussed: 14:02 Reason/Comments: Made aware of pt and accepted admission. Consult Disposition: Will see in ED, Admit Departure - Departure Date of Disposition Decision: 08/23/18 Time of Disposition Decision: 14:05 DIAGNOSIS: Cachexia, Hyponatremia, Leukocytosis, Inadequate pain control Disposition: ADMITTED INPATIENT 09 Certified Medical Emergency: Emergent Condition: Fair Referrals and Follow-Ups: None,PCP [Primary Care Provider] - - Critical Care Note This patient required my direct & personal management of CC.: No Attestation - Physician/ NAYLA Attestation Patient care was provided by Advanced Practice Provider:: No The physician spent face to face time with patient:: Yes Advanced Practice Provider documentation review:: Supervising physician onsite and consulted in the evaluation and care of this patient. The physician did have a face to face encounter with the patient. This chart was documented by the indicated scribe, (Stanley Carrion, [place]) and accurately reflects the services I performed and decisions made by me, Baldo Verduzco MD, as attested by the provider's signature.
[2018-08-23 15:24] LABS: URINE SOURCE CATH
[2018-08-23 15:28] LABS: BILIRUBIN URINE SMALL (NEGATIVE); BLOOD URINE NEGATIVE (NEGATIVE); COLOR YELLOW; GLUCOSE URINE NEGATIVE (NEGATIVE); KETONE URINE 10 mg/dL (NEGATIVE); LEUKOCYTES URINE NEGATIVE (NEGATIVE); NITRITE URINE NEGATIVE (NEGATIVE); PROTEIN URINE 70 mg/dL (NEGATIVE); SP GRAVITY URINE 1.038; TURBIDITY URINE CLEAR (CLEAR); UR EPITHELIAL CELLS <10 /HPF (<10); URINE BACTERIA NEGATIVE /HPF; URINE RBC <10 /HPF (<10); URINE WBC <10 /HPF (<10); UROBILINOGEN URINE NORMAL (NORMAL)
--- NOTE | 2018-08-23 15:58 | Diag Imaging Result Doc PS360 ---
EXAM: CHEST-1 VIEW 08/23/2018 HISTORY: sepsis protocol TECHNIQUE: AP portable at 1543 COMMENT: Compared to 08/18/2018 the volume of pleural fluid on the left may be slightly decreased and there is less opacification of the lingula and left lower lobe. IMPRESSION: Improved left pleural effusion and atelectasis versus pneumonia in the left base. Electronically signed by Arpan Astorga 08/23/2018 3:56 PM
[2018-08-23] MEDS ORDERED: TYLENOL PO PRN (16:08)
--- NOTE | 2018-08-23 16:15 | HISTORY AND PHYSICAL ---
ONCOLOGIST: Dr. Adrian Razo. PRIMARY CARE PROVIDER: None. CHIEF COMPLAINT: Abdominal pain. HISTORY OF PRESENT ILLNESS: Ms. Kirkland is a 68-year-old female with a past medical history of metastatic ovarian cancer, who is a patient of Dr. Razo. She was most recently discharged from our service on 08/19/2018. She was supposed to follow up and be set up for outpatient paracentesis, as well as set up for a Port-A-Cath placement. It was decided on her last admission, given the patient's continued elevated white count and debilitated state, that she would benefit from doing p.r.n. paracentesis, as opposed to having an indwelling catheter. She called Dr. Razo's office today and was complaining of recurrent ascites and continued abdominal pain, and was advised by him to come to the ER and be admitted per her report for paracentesis, which we will set up for her in the a.m., and we will provide her with pain control and consult Dr. Razo. REVIEW OF SYSTEMS: Twelve-point review of systems: The patient does not complain of any headache, fever, chills, chest pain, overt shortness of breath. She is positive for continued no appetite, abdominal pain, bilateral lower extremity swelling that is new. She does have mild pitting edema around her ankles. PAST MEDICAL HISTORY: 1. 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 2. Continued leukocytosis secondary to #1. 3. Failure to thrive and malnutrition. 4. Chronic hyponatremia. 5. DVT, on Coumadin. PAST SURGICAL HISTORY: 1. Status post 3 ultrasound-guided paracenteses, 1 in 2015 and 2 in 2018. 2. Cholecystectomy. SOCIAL HISTORY: She smokes a fourth of a pack of cigarettes a day. No alcohol or illicit drug use. ALLERGIES: No known drug allergies. HOME MEDICATIONS: Have not been reconciled. PHYSICAL EXAMINATION: VITAL SIGNS: Temperature was 97.5 degrees, heart rate 97, respirations 16, blood pressure 133/70, O2 is 98% on room air. GENERAL: Ms. Kirkland is an ill-appearing, 68-year-old female, who is lying on the stretcher in no acute distress. HEENT: Atraumatic, normocephalic. PERRL. Mucous membranes are dry. NECK: Supple. Trachea midline. CV: S1, S2 appreciated. She does have some ankle edema bilaterally. Bilateral pedal pulses are bounding. No JVD appreciated. PULMONARY: Bilateral breath sounds are clear. GI: Abdomen is distended, somewhat tender. Positive bowel sounds 4 quadrants. NEUROLOGIC: No focal deficits noted. SKIN: Appears to be warm, dry and intact. ASSESSMENT AND PLAN: 1. 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 We will consult Dr. Razo and set her up for an ultrasound-guided paracentesis in the morning. 2. Intractable abdominal pain. We will continue with pain control. 3. Continued leukocytosis. Currently awaiting urinalysis and chest x-ray. The patient has continued to have leukocytosis. 4. Chronic hyponatremia. 5. Deep vein thrombosis. The patient is supposed to be on Coumadin. We will restart and check a PT and INR daily. 6. Failure to thrive and malnutrition. 7. Further recommendation to follow physician evaluation, laboratory and diagnostic data. Dictated by CAMILA Marshall for Edi Luz MD cc: MD Adrian Doshi MD I have seen and examined Ms Kirkland today. No family at bedside. Ms Kirkland presents with symptomatic malignant ascites. She also looks clinically volume depleted. She will be admitted to medical floor and under go therapeutic paracentesis. I agree with the above HPI and the plan reflects my opinion discussed with the FACE WORKER. I have also discussed my plans with Ms Kirkland. SARMAD
[2018-08-23] MEDS: NORCO-7.5 PO PRN ×2 (16:26→22:20)
[2018-08-23 17:10] LABS: INR 1.06; PROTIME 14.7 Seconds (11.0-16.0); PTT 38.9 Seconds (22.3-41.8)
--- NOTE | 2018-08-23 17:20 | EKG Report ---
Test Performed on : 08/23/2018 4:44:12 PM Test Reason : repeat now Blood Pressure : / mmHG Vent. Rate : 107 BPM Atrial Rate : 107 BPM P-R Int : 128 ms QRS Dur : 086 ms QT Int : 332 ms P-R-T Axes : 071 037 060 degrees QTc Int : 443 ms Sinus tachycardia. Otherwise normal ECG No previous ECGs available Confirmed by Liban MARIE, Favian Casiano ([id number]) on 08/24/2018 6:38:44 PM
[2018-08-23] MEDS: DILAUDID IV PRN ×2 (17:40→21:10)
[2018-08-23] MEDS: NS 1,000 ML IV SCH (17:40)
--- NOTE | 2018-08-23 17:40 | HISTORY AND PHYSICAL ---
ADDENDUM: Ms. 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 She follows up with Dr. Razo. I understand she went to see Dr. Razo today for a regular follow-up and because of intractable abdominal pain and distention, she was referred to the ER for inpatient management. She was seen by the ER physicians and worked up. Her initial vitals refers blood pressure was 133/70, pulse is 110, respirations 16. Clinically she looks slightly dry but most significant on her physical exam is distended abdomen which is minimally tender. There is a positive fluid shift and an old infraumbilical surgical scar which is also present. I have reviewed her current labs, both CBC and chemistry. Her chest x-ray shows improved left pleural effusion and atelectasis versus pneumonia in the left base. The patient was treated actually for pneumonia. She was on p.o. antibiotics. ASSESSMENT: 1. Intractable abdominal pain secondary to massive malignant ascites. 2. History of ovarian cancer with peritoneal carcinomatosis. 3. Malignant ascites. 4. Clinical volume depletion. 5. Failure to thrive. PLAN: Ms. Kirkland will be admitted to the medical floor. We will gently hydrate her overnight and repeat her labs in the morning. She is also pending a therapeutic paracenteses in the morning by IR. Please refer to the details of the history and physical, which has been dictated by the ROTO ROOTER OPERATOR, in the chart. cc: Edi Luz MD
--- NOTE | 2018-08-23 17:46 | ED EKG INTERP ---
This chart was entered by Stanley Carrion Scribe, acting as scribe for Baldo Verduzco MD. EKG Interpretation - EKG Time of EKG reading by physician:: 16:44 EKG Read and Signed by:: Baldo Verduzco EKG Interpretation (*Must complete 3 of following elements*): Abnormal Rate: 107 Rhythm: Sinus tachycardia [place]: normal QRS: normal ME Interval: normal ST Wave: normal Comments: Sinus tachycardia, otherwise normal ECG Attestation - Physician/ NAYLA Attestation Patient care was provided by Advanced Practice Provider:: No The physician spent face to face time with patient:: Yes Advanced Practice Provider documentation review:: Supervising physician onsite and consulted in the evaluation and care of this patient. The physician did have a face to face encounter with the patient. This chart was documented by the indicated scribe, (Stanley Carrion Scribe) and accurately reflects the services I performed and decisions made by me, Baldo Verduzco MD, as attested by the provider's signature.
[2018-08-23] MEDS: ZOFRAN IV PRN ×2 (17:49→21:23)
[2018-08-24] MEDS: DILAUDID IV PRN ×5 (01:08→21:28)
--- NOTE | 2018-08-24 07:14 | Diag Imaging Result Doc PS360 ---
EXAM: CHEST-PORTABLE 08/24/2018 HISTORY: fu TECHNIQUE: AP portable at 0627 COMMENT: There is increased pleural fluid on the left compared to 08/23/2018. There may be worsened atelectasis in the left lower lobe and lingula. The right lung is essentially stable. IMPRESSION: Worsening pleural effusion and basilar opacities on the left. Electronically signed by Arpan Astorga 08/24/2018 7:11 AM
[2018-08-24 07:39] LABS: INR 1.08; PROTIME 14.9 Seconds (11.0-16.0)
[2018-08-24 08:02] LABS: BASO# 0.03 X1000 (0.0-0.2); BASO% 0.2 % (0.0-0.8); EOS# 0.03 X1000 (0.0-0.7); EOS% 0.2 % (0.0-10.0); HEMATOCRIT 32.8 % (37.0-47.0); HEMOGLOBIN 10.9 g/dL (12.0-16.0); IMM GRAN# 0.46 X1000 (0.0-0.04); IMM GRAN% 2.4 % (0.0-0.5); LYMPH# 1.94 X1000 (1.2-3.4); LYMPH% 10.2 % (20.5-51.1); MCHC 33.2 g/dL (33-37); MCV 96.2 FL (81-99); MONO# 2.03 X1000 (0.11-0.59); MONO% 10.6 % (1.7-9.3); MPV 10.1 FL (7.4-10.4); NEUT# 14.61 X1000 (1.4-6.5); NEUT% 76.4 % (42.2-75.2); PLT 327 X1000 (130-400); RBC 3.41 XMIL (4.2-5.4); RDW 18.4 % (11.5-14.5)
[2018-08-24 08:13] LABS: AGAP 20; ALB/GLOB RATIO 0.8; ALBUMIN 2.6 g/dL (3.5-5.0); ALKALINE PHOSPHATASE 250 U/L (32-104); BUN 11 mg/dL (8-22); CALCIUM 8.9 mg/dL (8.8-10.2); CHLORIDE 96 mmol/L (98-107); COSMO 265; CREATININE 0.5 mg/dL (0.5-0.9); ESTIMATED GFR > 60; GLUCOSE 55 mg/dL (70-104); GOT 18 U/L (10-30); GPT 7 U/L (10-36); MAGNESIUM 1.7 mg/dL (1.5-2.7); POTASSIUM 3.9 mmol/L (3.5-5.1); SODIUM 134 mmol/L (136-145); TCO2 18 mmol/L (25-35); TOTAL BILIRUBIN 0.42 mg/dL (0.20-1.00); TOTAL PROTEIN 5.8 g/dL (6.3-8.3)
--- NOTE | 2018-08-24 09:48 | Diag Imaging Result Doc PS360 ---
US ABD PARACENTESIS W S/I - 08/24/2018 INDICATION: recurrent ascites COMPARISON: 08/18/2018 FINDINGS: The risks and benefits of the procedure were discussed with the patient. All questions were answered. Written and verbal consent was obtained. Ultrasound scanning demonstrated ascites. Overlying skin was prepped and draped in sterile fashion. Anesthesia was achieved with injection of 10 cc 1% lidocaine. The paracentesis catheter was advanced until the return of ascites fluid. 800 cc of clear yellow fluid was aspirated. The catheter was withdrawn intact. The patient reported no symptoms from the procedure. IMPRESSION: Successful and uncomplicated ultrasound-guided paracentesis, yielding only a small amount of fluid. Electronically signed by Julius Calle 08/24/2018 9:46 AM
[2018-08-24 10:13] LABS: LYMPHS 10 % (21-51); MONO 10 % (1-9); SEGS 79 % (42-75)
[2018-08-24 10:14] LABS: POIKILOCYTOSIS 1+; TARGET CELLS 1+
--- NOTE | 2018-08-24 13:02 | PROGRESS NOTE ---
DATE: 08/24/2018 SUBJECTIVE: The patient states she is feeling better. OBJECTIVE: Vital Signs: Temperature is 98.1 degrees, heart rate 107, respirations 16, blood pressure 126/65, O2 is 97% on room air. General: Ms. Kirkland is a 68-year-old, female who is currently lying on her left side in bed, in no acute distress. HEENT: Atraumatic, normocephalic. PERRL. Neck: Supple. Trachea midline. CV: S1 and S2 are appreciated. No murmurs, gallops, or rubs noted. Respiratory: Lungs sound clear bilaterally. Decreased in the bases. GI: The abdomen is less tender and less distended. Positive bowel sounds in 4 quadrants. Extremities: No clubbing, no cyanosis. Pedal pulses are bounding. Still has some ankle edema. Neurologic: No focal deficits noted. Laboratory Data: White count from 17 to 19, hemoglobin and hematocrit 10 and 32, platelet count 327,000. Chemistry: Sodium 134 up from 130, potassium 3.9, BUN 11, creatinine 0.5, blood glucose was 55. Urinalysis was negative for bacteria, negative for nitrates. PROCEDURES: Ultrasound-guided paracentesis. They removed 800 mL of a clear yellow fluid without any complication. Microbiology studies are currently pending. Blood cultures are pending. ASSESSMENT AND PLAN: 1. Intractable abdominal pain secondary to malignant ascites. The patient is feeling better this morning after her paracentesis where they removed 800 mL of clear yellow fluid. 2. History of ovarian cancer with peritoneal carcinomatosis. We have consulted Dr. Razo. We have had palliative care speak with the patient. She was able to obtain a portable Do Not Resuscitate document. She does request a Do Not Resuscitate level 1 status. She obtained a freedom of choice for [facility] after speaking with the daughter, Eliz Hutchinson. The patient does not want to continue with oncology treatments that are offered and is aware that she cannot receive any treatment while in rehab. 3. Previous pneumonia where she had 5 more days of treatment. We are continuing with her oral Levaquin. 4. Clinical volume depletion. Continue with gentle intravenous hydration. 5. Failure to thrive. The patient is requesting food this morning. She states she has an appetite and is actually hungry for some food. We ordered her a tray with grilled cheese and sweet tea. 6. Chronic hyponatremia, improved. 7. Previous treatment for deep venous thrombosis. It does not appear the patient is any longer taking Coumadin. 8. Do Not Resuscitate level 1 with portable Do Not Resuscitate on the chart. 9. Further recommendations to follow physician evaluation, laboratory and diagnostic data. Dictated by CAMILA Marshall for Edi Luz MD cc: MD Adrian Doshi MD I have seen and examined Ms Stanton today. No family was at the bedside. She is day s/p therapeutic paracentesis. She feels a lot better today Plan to discharge to rehab when stable. Will continue to manage all the other comorbidities. I agree with the above progress notes. SARMAD
[2018-08-24] MEDS: LEVAQUIN PO SCH (13:27)
[2018-08-24] MEDS: NS 1,000 ML IV SCH (13:28)
[2018-08-24] MEDS: MIRALAX PO SCH (13:28)
[2018-08-24] MEDS: NORCO-7.5 PO PRN (15:11)
--- NOTE | 2018-08-24 15:34 | HEMO/ONC CONSULTATION ---
DATE: 08/24/2018 CHIEF COMPLAINT: The patient is experiencing abdominal pain, dehydration, anorexia, nausea, vomiting with a history of metastatic ovarian cancer. HISTORY OF PRESENT ILLNESS: Ms. Kirkland has a history of metastatic ovarian cancer. We saw her in the office yesterday with complaint of severe abdominal distention, anorexia, dehydration, abdominal pain and nausea and vomiting. She has been eating very minimal since her discharge this past weekend. She has continued to have increased pain and distention. Mr. Kirkland is known to us. She is currently receiving treatment for metastatic ovarian cancer with IV Gemzar. She also receives B12 injections in our clinic. She has recently received 2 units infusions of IV iron for iron deficiency anemia in the last month. PAST MEDICAL HISTORY: Metastatic ovarian cancer. Essential hypertension. Iron-deficiency anemia. PAST SURGICAL HISTORY: Cholecystectomy. SOCIAL HISTORY: She is smokes approximately 1/4 pack cigarettes a day and denies alcohol or illicit drug use. ALLERGIES: No known drug allergies. HOME MEDICATIONS: [place], folic acid, promethazine, Reglan, and Zofran. REVIEW OF SYSTEMS: The patient denies chest pain, fevers, night sweats, melena or clinical signs of bleeding. She is she complains of abdominal distention and pain, nausea, vomiting, and shortness of breath. PHYSICAL EXAMINATION: General: The patient appears uncomfortable. She is a very thin and pale. Vital Signs: Temperature 98.1 degrees, pulse rate 107, respiratory rate 16, blood pressure 126/65 with O2 saturation 97% on room air. She is an 8/10 abdominal pain. HEENT: Pupils PERRLA, anicteric. Mucous membranes appear dry. No JVD noted. Cardiovascular: Regular rate and rhythm. S1, S2 noted. Respiratory: The breath sounds are clear to auscultation. Bilateral breath sounds. Gastrointestinal: Abdomen is remarkably distended. General tenderness all over to light palpation. Bowel sounds are present. Neurologic: She is alert and oriented x3. No focal motor deficits noted. Skin: Warm and dry. LABORATORY DATA: White blood cells 19.10, hemoglobin 10.9, hematocrit 32.8, platelet count 327,000. Sodium 134. ASSESSMENT: 1. Recurrent ovarian carcinoma. 2. Abdominal pain and distention. 3. Intractable abdominal pain. 4. Continued leukocytosis. 5. Deep venous thrombosis prophylaxis. 6. Failure to thrive and malnutrition. PLAN: The patient had an ultrasound-guided paracentesis performed this morning. Approximately 800 mL of clear yellow fluid was aspirated. The patient tolerated the procedure well. Continue pain medication with IV Dilaudid as ordered. The patient's chest x-ray shows worsening pleural effusion with basilar opacities on the left. Please continue to treat with antibiotic. We have consulted Dr. Parra to evaluate for a long-term drainage solution for her abdominal ascites. Proceed with IV nutrition, provide protein shakes. Encourage patient to get out of bed. Dictated by CAMILA Catalan for Adrian Razo MD cc: Adrian Razo MD MTDD
--- NOTE | 2018-08-24 22:28 | GENERAL SURGERY CONSULTATION ---
DATE: 08/24/2018 HISTORY OF PRESENT ILLNESS: A 68-year-old female known to me. She has metastatic ovarian cancer and recurrent malignant ascites. She has undergone multiple paracenteses. We have evaluated her during her previous admission, during which she had electrolyte abnormalities and pneumonia and a fall while in-house that prohibited us from placing a catheter. However, she is readmitted now with reaccumulated symptomatic ascites. MEDICAL HISTORY: Includes metastatic ovarian cancer. SURGICAL HISTORY: She has had several abdominal operations through her lower midline related to her cancer. SOCIAL HISTORY: No current tobacco, alcohol, or drugs. FAMILY HISTORY: Reviewed. REVIEW OF SYSTEMS: Ten-point negative other than HPI. PHYSICAL EXAMINATION: Vital signs: No fever, pulse 100, blood pressure 148/60. General: She is chronically ill appearing but in no acute distress. HEENT: There is no scleral icterus. Neck: No cervical mass. Cardiovascular: Normal rate. Pulmonary: No increased work of breathing. Abdomen: Distended with ascites, but soft and nontender. Integument: Warm, dry. Psychiatric: Appropriate affect. Neurologic: Generalized weakness. Musculoskeletal: She does have some cachexia. LABORATORIES: White count remains elevated at 19, hematocrit 32, platelets 327,000. Creatinine 0.5. I have reviewed her electrolytes. Albumin is 2.6. ASSESSMENT AND PLAN: A 68-year-old female with malignant ascites. We discussed risks, benefits, and alternatives, including bleeding, infection, damage to surrounding structures, malfunction of the catheter, and infection of the catheter. She understands and consents. We will go to the operating room tomorrow for laparoscopic-assisted peritoneal catheter placement. cc: Cesario Parra MD
[2018-08-25] MEDS: NORCO-7.5 PO PRN ×3 (00:10→21:18)
[2018-08-25] MEDS: DILAUDID IV PRN ×2 (03:29→12:14)
--- NOTE | 2018-08-25 07:18 | Diag Imaging Result Doc PS360 ---
EXAM: CHEST-PORTABLE 08/25/2018 HISTORY: dyspnea TECHNIQUE: AP portable at 0546 COMMENT: The left pleural fluid collection appears to have diminished in volume since 08/24/2018. The lungs are slightly better expanded. There is less opacification in the left upper lobe. IMPRESSION: Improved left pleural effusion and atelectasis versus pneumonia. Electronically signed by Arpan Astorga 08/25/2018 7:16 AM
[2018-08-25 07:39] LABS: BASO# 0.02 X1000 (0.0-0.2); BASO% 0.1 % (0.0-0.8); EOS# 0.05 X1000 (0.0-0.7); EOS% 0.3 % (0.0-10.0); HEMATOCRIT 31.8 % (37.0-47.0); HEMOGLOBIN 10.5 g/dL (12.0-16.0); IMM GRAN# 0.37 X1000 (0.0-0.04); IMM GRAN% 1.9 % (0.0-0.5); LYMPH# 1.74 X1000 (1.2-3.4); LYMPH% 9.1 % (20.5-51.1); MCH 31.9 PG (27-31); MCV 96.7 FL (81-99); MONO# 1.91 X1000 (0.11-0.59); MPV 10.4 FL (7.4-10.4); NEUT# 15.01 X1000 (1.4-6.5); NEUT% 78.6 % (42.2-75.2); PLT 303 X1000 (130-400); RBC 3.29 XMIL (4.2-5.4); RDW 18.6 % (11.5-14.5)
[2018-08-25 07:42] LABS: INR 1.09
[2018-08-25 07:51] LABS: AGAP 18; ALB/GLOB RATIO 0.8; ALBUMIN 2.6 g/dL (3.5-5.0); ALKALINE PHOSPHATASE 265 U/L (32-104); BUN 12 mg/dL (8-22); CALCIUM 8.4 mg/dL (8.8-10.2); CHLORIDE 96 mmol/L (98-107); COSMO 267; CREATININE 0.6 mg/dL (0.5-0.9); ESTIMATED GFR > 60; GLUCOSE 86 mg/dL (70-104); GOT 21 U/L (10-30); GPT 8 U/L (10-36); POTASSIUM 4.2 mmol/L (3.5-5.1); SODIUM 134 mmol/L (136-145); TCO2 20 mmol/L (25-35); TOTAL BILIRUBIN 0.43 mg/dL (0.20-1.00); TOTAL PROTEIN 5.7 g/dL (6.3-8.3)
[2018-08-25] MEDS: LEVAQUIN PO SCH (08:36)
[2018-08-25] MEDS: ZOFRAN IV PRN (12:19)
[2018-08-25] MEDS ORDERED: DIPRIVAN 1% ONE (15:09)
[2018-08-25] MEDS ORDERED: FENTANYL ONE ×2 (15:09→16:16)
[2018-08-25] MEDS ORDERED: XYLOCAINE-MPF 2% ONE (15:12)
[2018-08-25] MEDS ORDERED: SENSORCAINE-MPF 0.5%/EPI 1:200,000 ONE (15:20)
[2018-08-25] MEDS ORDERED: KEFZOL 1 GM/D5W 1 GM/50 ML IVPB ONE (15:33)
[2018-08-25] MEDS ORDERED: QUELICIN (DOSE) ONE (16:06)
[2018-08-25 16:34] LABS: URINE SOURCE CATH
[2018-08-25 16:38] LABS: BILIRUBIN URINE SMALL (NEGATIVE); BLOOD URINE NEGATIVE (NEGATIVE); COLOR YELLOW; GLUCOSE URINE NEGATIVE (NEGATIVE); KETONE URINE 40 mg/dL (NEGATIVE); LEUKOCYTES URINE NEGATIVE (NEGATIVE); NITRITE URINE NEGATIVE (NEGATIVE); PROTEIN URINE 70 mg/dL (NEGATIVE); SP GRAVITY URINE 1.033; TURBIDITY URINE CLEAR (CLEAR); UROBILINOGEN URINE 2 mg/dL (NORMAL)
[2018-08-25 16:39] LABS: UR EPITHELIAL CELLS <10 /HPF (<10); URINE BACTERIA NEGATIVE /HPF; URINE RBC <10 /HPF (<10); URINE WBC <10 /HPF (<10)
[2018-08-25] MEDS: DILAUDID ONE (16:55)
[2018-08-25] MEDS ORDERED: DILAUDID ONE ×2 (17:05→17:12)
--- NOTE | 2018-08-25 17:32 | HEMO/ONC PROGRESS NOTE ---
DATE: 08/25/2018 SUBJECTIVE: Ms. Kirkland is lying in bed. She appears uncomfortable. It appears as though her abdomen has become distended again status post her therapeutic paracentesis 2 days ago. She states that she is not getting good pain relief from the IV medications and does much better with oral hydrocodone. She is aware that Dr. Parra is going to take her to surgery today for a permanent drain. OBJECTIVE: Vital Signs: Temperature 98.0 degrees, pulse rate 102, respiratory rate 18, blood pressure 140/64, O2 saturation 98% on room air. She is in 8/10 abdominal pain. General: Chronically ill-appearing elderly woman who appears uncomfortable but in no acute distress. Respiratory: Lungs are clear to auscultation. No work of breathing. Cardiac: S1, S2 noted. Regular rate and rhythm. Gastrointestinal: Abdomen is again remarkably distended. General tenderness to palpation all over. LABORATORY DATA: WBCs 19.1, hemoglobin 10.5, hematocrit 31.8, platelet count 303,000. Sodium was 134, potassium 4.2, alkaline phosphatase 265. IMAGING: Chest x-ray this morning shows improved left pleural effusion and atelectasis versus pneumonia. ASSESSMENT: 1. Recurrent ovarian carcinoma. 2. Abdominal pain and distention. 3. Continue leukocytosis. 4. Deep venous thrombosis prophylaxis. 5. Failure to thrive and malnutrition. PLAN: The plan is to have a permanent drainage solution placed by surgery today. This will hopefully improve her abdominal pain and distention if patient will tolerate the surgery well. Patient is requesting oral pain medication. She states she does better with hydrocodone orally then with the IV Dilaudid that she has been getting. Patient is continuing on antibiotics and tolerating those well. Continue with IV nutrition. Please encourage the patient to continue protein shakes when she is able to eat or drink after surgery began and encourage the patient to get out of bed several times daily. Dictated by CAMILA Catalan for Adrian Razo MD cc: Adrian Razo MD [facility]
--- NOTE | 2018-08-25 19:18 | PROGRESS NOTE ---
DATE: 08/25/2018 SUBJECTIVE: This morning Ms. Kirkland refers to be doing fairly okay she said she was waiting for the peritoneal catheter placement. OBJECTIVE: Vitals: Blood pressure is 137/63, pulse of 107, respiration is 19, temperature 97.8 degrees. General: Ms. Kirkland is a 68-year-old female she was in bed no distress. Mucosa is slightly dry. Anicteric, acyanotic, Ms Kirkland looks chronically ill and extremely wasted. Chest: Air entry is bilaterally reduced but no crackles. Cardiovascular: Regular rate and rhythm. Abdomen: Soft, is distended. There is positive bowel sounds. There is also shifting dullness. Extremities: No pedal edema. COMSEC MANAGER: Patient is awake, alert, oriented. LABORATORY DATA: WBC is 19.10, hemoglobin is 10.5, platelet count of 303,000. Chemistry is also reviewed unremarkable. So far blood cultures have been 48 hours negative. ASSESSMENT: 1. Intractable abdominal pain on presentation secondary to malignant ascites. Patient is status post 800 fluid removed. She is pending peritoneal catheter placement for intermittent fluid management. 2. History of recurrent ovarian cancer associated with peritoneal carcinomatosis. Dr. Razo is on board. 3. History of pneumonia. Patient was on p.o. antibiotics is currently on Levaquin. 4. Clinical volume depletion. Will continue with gentle IV fluids. 5. Failure to thrive secondary to underlying malignancy. 6. Chronic hyponatremia which has been worsen with dehydration. Will continue with the IV fluids until patient hydration status is improved then we will address the chronicity part with probably Samsca. 7. Generalized weakness and deconditioning. Ms Kirkland wants to be discharged to a rehab and get her stronger with the hope that she can start back on chemotherapy. cc: Edi Luz MD
[2018-08-25] MEDS: MIRALAX PO SCH (21:21)
--- NOTE | 2018-08-25 22:18 | OPERATIVE NOTE ---
PROCEDURE DATE: 08/25/2018 PREOPERATIVE DIAGNOSIS: Metastatic ovarian cancer with malignant ascites. POSTOPERATIVE DIAGNOSIS: Metastatic ovarian cancer with malignant ascites. PROCEDURE PERFORMED: 1. Diagnostic laparoscopy. 2. Aborted peritoneal catheter placement. ESTIMATED BLOOD LOSS: 2 mL. SPECIMENS: None. ANESTHESIA: General. INDICATIONS: A 68-year-old female who has had recurrent malignant ascites, requiring frequent paracenteses. OPERATIVE FINDINGS: We attempted access in the right upper quadrant above the liver. There was dense, unsurpassable, intra-abdominal malignant adhesions prohibiting access to the abdomen. OPERATIVE NOTE: Risks, benefits, and alternatives were discussed with the patient, and she consented to the procedure. She was seen preoperatively, and the surgical site was confirmed. She has taken to the operating room and placed in the supine position. General anesthesia induced without complication. All bony prominences were padded. A Tan catheter was placed. The abdomen was prepped with chlorhexidine and draped in the usual fashion. After a time-out, we attempted access in the right upper quadrant as she had a previous lower midline and palpable tumors in the lower quadrants of her abdomen. We made an incision here and carried this down through the muscle fascia, dividing the fibers of the muscle and incised the posterior fascial sheath and peritoneum. We identified the anterior surface of the liver and noted that it was very adherent up to the undersurface of the peritoneum. We tried to sweep this down. I did consider that this could be thickened peritoneum, and we elevated this and incised it and confirmed that this was, in fact, liver capsule. We cauterized this and noted hemostasis. Under direct visualization, a Cindy trocar was placed. We attempted insufflation, but we could not gain any working room beyond just a couple of inches. We tried to sweep this down. There were no accessible breaks in the adhesions, and we felt that this was the most likely unhostile quadrant of her abdomen. As such, we elected not to pursue further and risk injury to the viscera. We noted hemostasis. We reapproximated the fascia with interrupted 0 Vicryl sutures. The skin was closed with 4-0 Monocryl in subcuticular fashion. Dermabond was applied. She overall tolerated it well and was transferred to Recovery. She will need to continue serial paracenteses as catheter drainage is not an option. cc: Cesario Parra MD
[2018-08-26] MEDS: DILAUDID IV PRN (00:07)
[2018-08-26] MEDS: NORCO-7.5 PO PRN ×3 (03:54→20:27)
[2018-08-26 07:39] LABS: BASO# 0.02 X1000 (0.0-0.2); BASO% 0.1 % (0.0-0.8); HEMATOCRIT 32.6 % (37.0-47.0); HEMOGLOBIN 10.4 g/dL (12.0-16.0); IMM GRAN# 0.35 X1000 (0.0-0.04); IMM GRAN% 2.1 % (0.0-0.5); LYMPH# 1.83 X1000 (1.2-3.4); LYMPH% 10.9 % (20.5-51.1); MCH 30.8 PG (27-31); MCHC 31.9 g/dL (33-37); MCV 96.4 FL (81-99); MONO# 1.74 X1000 (0.11-0.59); MONO% 10.4 % (1.7-9.3); MPV 9.6 FL (7.4-10.4); NEUT# 12.81 X1000 (1.4-6.5); NEUT% 76.5 % (42.2-75.2); PLT 286 X1000 (130-400); RBC 3.38 XMIL (4.2-5.4); RDW 18.5 % (11.5-14.5); WBC 16.75 X1000 (4.8-10.8)
[2018-08-26 07:44] LABS: INR 1.01; PROTIME 14.1 Seconds (11.0-16.0)
[2018-08-26 08:02] LABS: AGAP 19; ALBUMIN 2.9 g/dL (3.5-5.0); ALKALINE PHOSPHATASE 238 U/L (32-104); BUN 15 mg/dL (8-22); CALCIUM 8.8 mg/dL (8.8-10.2); CHLORIDE 97 mmol/L (98-107); COSMO 273; CREATININE 0.6 mg/dL (0.5-0.9); ESTIMATED GFR > 60; GLUCOSE 97 mg/dL (70-104); GOT 21 U/L (10-30); GPT 8 U/L (10-36); POTASSIUM 4.1 mmol/L (3.5-5.1); SODIUM 136 mmol/L (136-145); TCO2 20 mmol/L (25-35); TOTAL PROTEIN 5.8 g/dL (6.3-8.3)
[2018-08-26] MEDS: MIRALAX PO SCH (08:16)
[2018-08-26] MEDS: LEVAQUIN PO SCH (08:16)
[2018-08-26] MEDS: DILAUDID ONE (08:20)
--- NOTE | 2018-08-26 14:35 | PROGRESS NOTE ---
DATE: 08/26/2018 SUBJECTIVE: Today Ms. Kirkland refers to be feeling okay. Still has some abdominal discomfort. She said that her procedure yesterday was not done because of some complication, which she did not seem to understand very well why. OBJECTIVELY: Current vitals: Blood pressure is 147/64, pulse of 107, respirations 18, temperature 97.7 degrees. The patient was saturating 100%. General: Ms. Kirkland is a 68-year-old female. She was in bed. No distress. HEENT: Mucosa is pink. Anicteric. Acyanotic. Neck: Supple. Chest: Good air entry bilateral. No crepitations. No rhonchi. Cardiovascular: Regular rate and rhythm. Abdomen: Soft, distended. There are positive bowel sounds. There is also shifting dullness. Extremities: No pedal edema. Central nervous system: Patient is awake, alert, and follows commands. LABORATORY DATA: WBC is 16.72, hemoglobin is 10.4, platelet count of 286,000. Chemistry is also reviewed, unremarkable. So far blood cultures have been negative. ASSESSMENT: 1. Intractable abdominal pain on presentation secondary to malignant ascites. The patient is status post 800 mL of ascitic fluid removed. There was a plan for peritoneal catheter placement; however, per the surgical report, an attempt was done yesterday. It was unsuccessful because of dense, insuppressible intra-abdominal malignant adhesions prohibiting access to the abdominal cavity. 2. Pneumonia. Patient is on p.o. Levaquin. 3. Clinical volume depletion, improved. 4. Failure to thrive secondary to underlying malignancy. 5. Recurrent ovarian cancer with peritoneal carcinomatosis. The patient follows up with Dr. Razo. 6. Generalized weakness and deconditioning with extreme poor performance status. 7. Hyponatremia, improved. PLAN: In general, Ms. Kirkland seems to be feeling a little better in terms of pain control. However, unfortunately, we could not put in the peritoneal catheter because of the reasons in the chart. She would have to be getting intermittent paracenteses. The patient still wants to pursue active cancer therapy and she wants to go to rehab. We are still pending placement. cc: Edi Luz MD
[2018-08-26 16:04] LABS: URINE SOURCE CATH
[2018-08-26 16:07] LABS: BILIRUBIN URINE NEGATIVE (NEGATIVE); BLOOD URINE MODERATE (NEGATIVE); COLOR STRAW; GLUCOSE URINE NEGATIVE (NEGATIVE); KETONE URINE TRACE mg/dL (NEGATIVE); LEUKOCYTES URINE NEGATIVE (NEGATIVE); NITRITE URINE NEGATIVE (NEGATIVE); PH URINE 5.5; PROTEIN URINE TRACE mg/dL (NEGATIVE); TURBIDITY URINE HAZY (CLEAR); UR EPITHELIAL CELLS >10 /HPF (<10); URINE BACTERIA NEGATIVE /HPF; URINE RBC TNTC /HPF (<10); URINE WBC <10 /HPF (<10); UROBILINOGEN URINE NORMAL (NORMAL)
[2018-08-26] MEDS: MORPHINE IV PRN ×2 (16:56→21:39)
[2018-08-26] MEDS: ZOFRAN IV PRN ×2 (17:05→20:30)
[2018-08-26] MEDS ORDERED: GLYCERIN ADULT PR ONE (17:17)
[2018-08-26] MEDS: NS 1,000 ML IV SCH (18:14)
[2018-08-27] MEDS: ZOFRAN IV PRN ×2 (04:47→16:48)
[2018-08-27] MEDS: NORCO-7.5 PO PRN (04:47)
[2018-08-27] MEDS: MORPHINE IV PRN (06:33)
[2018-08-27] MEDS: NS 1,000 ML IV SCH (06:37)
[2018-08-27 08:22] LABS: INR 1.02; PROTIME 14.2 Seconds (11.0-16.0)
[2018-08-27] MEDS: LEVAQUIN PO SCH (10:15)
[2018-08-27] MEDS: MIRALAX PO SCH (10:16)
--- NOTE | 2018-08-27 12:54 | PROGRESS NOTE ---
DATE: 08/27/2018 SUBJECTIVE: This morning, Ms. Kirkland continues to be hurting some in the abdomen. She says that she has spoken with Dr. Razo and there is a plan for transition of care to palliative but she is going to discuss this with her daughter. OBJECTIVE: Vital Signs: Blood pressure is 141/58, pulse of 83, respirations are 16, temperature is 97.8 degrees. General Examination: Ms. Kirkland is a 68-year-old, female. She is in bed. She looks extremely frail and chronically ill-looking. HEENT: Mucosa is pink and moist. Anicteric. Acyanotic. Neck: Supple. Chest: Clear to auscultation. Cardiovascular: Regular rate and rhythm. GI: Abdomen is soft. It is distended, minimally tender. There is a shifting dullness. Extremities: No pedal edema. CLINICAL MASSAGE THERAPIST: The patient is awake, alert, and oriented. Laboratory Data: None for today. ASSESSMENT: 1. Intractable abdominal pain on presentation secondary to malignant ascites and peritoneal carcinomatosis. 2. Recurrent ovarian cancer with peritoneal carcinomatosis resulting into malignant ascites. The patient is status post paracenteses. There was a plan also for a peritoneal catheter placement. However, this was impossible because of the severe carcinomatosis. 3. Clinical volume depletion, improved. 4. Pneumonia. The patient was on oral Levaquin even before the admission. 5. Failure to thrive secondary to underlying malignancy. 6. Generalized weakness and deconditioning with extremely poor performance status. PLAN: In general, I think Ms. Kirkland continues to be remarkably frail with a poor performance status. I think she would benefit most appropriately from hospice care. I have spoken with Dr. Razo today. Palliative/hospice care has been introduced to Ms Kirkland. She is pending discussion with her daughter. cc: Edi Luz MD
[2018-08-27] MEDS: DURAGESIC 25 MICROGM/HR PATCH TD SCH (14:41)
[2018-08-27] MEDS: DILAUDID IV PRN ×2 (16:47→22:36)
--- NOTE | 2018-08-27 17:49 | HEMO/ONC PROGRESS NOTE ---
DATE: 08/27/2018 SUBJECTIVE: The patient is lying in bed. She appears comfortable. She does report one and off abdominal pain. We tried giving her morphine IV and she reports this causes nausea. She has not been eating much. She is drinking some protein shakes. She is slowly declining. OBJECTIVE: Vital signs: Temperature 97.8 degrees, pulse 83, blood pressure 141/58. HEENT: Eyes: EOMI. PERRLA. Anicteric. Mucous membranes appear partly dry. Cardiac: Regular rate and rhythm. Normal S1, S2. Chest: Clear to auscultation. Abdomen: Protuberant with ascites. Extremities: No cyanosis, clubbing, or edema. LABS: None today. ASSESSMENT AND PLAN: 1. Recurrent ovarian cancer: I discussed with the patient that her prognosis is poor. Dr. Parra was unable to place drainage tube to manage ascites on a outpatient basis. She is filling up rather quickly. She will require repeated ultrasound-guided times to get her as comfortable as possible. Due to her declining performance status, I do not think she will be a candidate for further therapy. I discussed this further with the patient's daughter, Eliz, as well. She is agreeable. She was also concerned that her declining status may pose significant difficulties for chemotherapy and chemotherapy may hurt her more than doing her any good. Family is unable to take care of her at home. They are agreeable with comfort measures and chcf placement. 2. Pain management: She has not tolerate morphine well. We will change her to Dilaudid 1 to 2 mg every 2 hours p.r.n. Also start her on Duragesic 25 mcg q.72 hours. Titrate this up as needed. 3. Discussed with Dr. Luz. cc: Adrian [facility]azo MD [facility]
[2018-08-28] MEDS: ZOFRAN IV PRN ×3 (03:17→12:37)
[2018-08-28] MEDS: DILAUDID IV PRN ×3 (07:23→18:50)
--- NOTE | 2018-08-28 13:31 | HEMO/ONC PROGRESS NOTE ---
DATE: 08/28/2018 SUBJECTIVE: The patient is lying in bed and appears uncomfortable. She has been vomiting. She states she is not well. Her stomach hurts. She is very nauseated. She is continuing to decline. OBJECTIVE: Vital Signs: Temperature 98.2, pulse rate 109, respiratory rate 16, blood pressure 144/58. She is 94% on 2 L via nasal cannula. General: Is in 8/10 abdominal pain. HEENT: Mucous membranes appear dry. Cardiac: Regular rate and rhythm. Normal S1, S2. Lungs: Clear to auscultation. Abdomen: Protuberant, with ascites. Pain to light palpation. Extremities: No edema. LABORATORY: None today. ASSESSMENT: 1. Recurrent ovarian cancer. 2. Pain management. PLAN: This patient's prognosis continues to be poor. The patient and her daughter are aware. Dr. Parra was not able to place a drainage tube to manage patient's ascites on an outpatient basis due to progression of her cancer. It continues to fill up rather quickly. She will require repeated ultrasound-guided paracentesis to keep her comfortable. Due to her declining performance status, we do not think she will be a candidate for further therapy. This has been discussed with the patient's daughter, Eliz, as well. She is agreeable. It was discussed that chemotherapy may hurt her more than do any good. The patient's family is unable to take care of the patient at home. They would like to move toward comfort measures and halfway placement. The patient continues to be very nauseated and not tolerating morphine well. This was changed to Dilaudid 1 to 2 mg every 2 hours p.r.n. Also, started Duragesic 25 mcg q.72h hours and titrate this up as needed. Dictated by CAMILA Catalan for Adrian Razo MD Patient seen and examined. As above. Patients condition continues to decline. Now she is having bilious vomiting. It is possible that she is having a bowel obstruction. Continue to manage pain. She is agreeable with DNR level I. Proceed with comfort measures. Adrian Razo M.D. cc: Adrian Razo MD [facility]
[2018-08-28] MEDS ORDERED: SODIUM CHLORIDE 0.9% INJ PRN (14:54)
[2018-08-28] MEDS: LEVAQUIN PO SCH (15:10)
[2018-08-28] MEDS: MIRALAX PO SCH (15:10)
--- NOTE | 2018-08-28 15:28 | PROGRESS NOTE ---
DATE: 08/28/2018 SUBJECTIVE: This morning, Ms. Kirkland refers to be feeling sick. Abdomen is distended and she was vomiting bile. OBJECTIVE: Vital Signs: Blood pressure is 138/59, pulse of 98, respirations are 21, temperature is 97.6 degrees. General Examination: Ms. Kirkland is a 68-year-old, female. She is in bed. She is not in any cardiopulmonary distress. HEENT: Mucosa is pink and moist. Anicteric. Acyanotic. Neck: Supple. Ms. Kirkland looks chronically ill, extremely wasted and frail. Chest: Air entry was bilaterally reduced but a few crackles posteriorly. Cardiovascular: Regular rate and rhythm. GI: Abdomen is distended, it is soft, it is tender on palpation. Bowel sounds extremely hypoactive. Extremities: No pedal edema. BURN CREW MEMBER: The patient is awake, alert. Laboratory Data: None for today. ASSESSMENT: 1. Intractable abdominal pain secondary to malignant ascites and peritoneal carcinomatosis. 2. Recurrent ovarian cancer with peritoneal carcinomatosis resulting into malignant ascites. 3. Clinical volume depletion on presentation. 4. Pneumonia. 5. Failure to thrive. 6. Generalized weakness and deconditioning with extremely poor performance status secondary to the underlying malignancy. 7. Bile vomiting, concerning for a small bowel obstruction due to peritoneal carcinomatosis. We are going to put a nasogastric tube down for intermittent suctioning. 8. Comfort measures only. PLAN: This morning, I spoke extensively with Ms. Wellington, who is the daughter of Ms. Kirkland. She, at this point, will have no means to do hospice at home. She requesting if there is any facility out there that would be able to take her. runner worker on board. Until then, Ms. Kirkland will be in the hospital on comfort care measures. The patient has been evaluated by her oncologist and has explained the advanced state of her disease. Ms. Kirkland herself has elected to go on hospice and the daughter is also in agreement on hospice. We will keep her here in the hospital, comfort care measures only until we have a place for her to transfer to hospice care. cc: Edi Luz MD [facility]
--- NOTE | 2018-08-28 16:15 | Diag Imaging Result Doc PS360 ---
EXAM: CHEST-PORTABLE 08/28/2018 HISTORY: ngt placement verification TECHNIQUE: AP portable at 1605 COMMENT: There is an NG tube with its tip in the stomach. There is pleural fluid on the left. There may also be atelectasis or pneumonia in the left lower lobe. This was also present on 08/25/2018 and there has been no appreciable change. IMPRESSION: NG tube in the stomach. Electronically signed by Arpan Astorga 08/28/2018 4:12 PM
[2018-08-28] MEDS: PHENERGAN IV PRN (18:50)
[2018-08-29] MEDS: ATIVAN IV PRN ×3 (04:17→22:17)
[2018-08-29] MEDS: PHENERGAN IV PRN (06:57)
[2018-08-29] MEDS: MIRALAX PO SCH ×2 (09:52→10:06)
--- NOTE | 2018-08-29 10:07 | HEMO/ONC PROGRESS NOTE ---
DATE: 08/29/2018 SUBJECTIVE: Ms. Kirkland is appears very ill this morning. Her status is declining quickly. She has an NG tube placed which is continuing to collect bile. Se appears uncomfortable and states she is not doing well. Her abdomen remains distended. OBJECTIVE: Vital Signs: Temperature 97.2 degrees, heart rate 104, respiratory rate 20, blood pressure 139/65. She is 94% on room air, 10/10 abdominal pain. General: She is in no acute distress, although she is quite ill appearing. Cardiovascular: S1, S2 noted. Regular rate and rhythm. Tachycardic. Respiratory: Shallow breathing. No use of accessory muscles. Upper lobes clear to auscultation. Abdomen: Distended, tender to palpation. Firm. Bowel sounds hypoactive. LABORATORY DATA: None for today. ASSESSMENT: 1. Intractable abdominal pain secondary to malignant ascites and peritoneal carcinomatosis. 2. Recurrent ovarian cancer with peritoneal carcinomatosis. 3. Pneumonia. 4. Failure to thrive. 5. Generalized weakness and deconditioning. 6. Vomiting bile with possible small bowel obstruction due to peritoneal carcinomatosis. 7. Comfort measures only. PLAN: The patient's prognosis continues to be poor. We have discussed with the patient and the patient's daughter her clinical condition. Both have agreed to go for comfort measures now. The patient is a Do Not Resuscitate. The patient is declining rapidly. Continue to manage patient's pain and comfort measures. Dictated by CAMILA Catalan for Adrina Razo MD Patient seen and examined. As above. Patients condition continues to worsen. Patient is DNR 1. Patient and family are agreeable with comfort measures and hospice. I have spoken to patients daughter Eliz again today. Questions were addressed. Continue current management. Adrian Razo M.D. cc: Adrian Razo MD [facility]
[2018-08-29] MEDS: REGLAN IV PRN (11:23)
[2018-08-29] MEDS: DILAUDID IV PRN (11:24)
--- NOTE | 2018-08-29 21:05 | PROGRESS NOTE ---
DATE: 08/29/2018 SUBJECTIVE: Patient resting in bed. OBJECTIVE: Vital signs: Temperature 98.4 degrees, pulse 120, respiratory rate 16, blood pressure 141/71, oxygen saturation 96%.HEENT: Atraumatic, normocephalic. Cardiovascular: S1, S2. Respiratory: Evidence of good air entry bilaterally. Abdomen: Full, nontender. No masses felt. Extremities: No evidence of edema. Central nervous system: No obvious focal deficits noted. LABORATORY DATA: None. ASSESSMENT: 1. Malignant ascites with peritoneal carcinomatosis. 2. Ovarian cancer. 3. Pneumonia. 4. Failure to thrive. 5. Generalized weakness as well as deconditioning. PLAN: The patient has elected to pursue hospice. The patient's daughter is in agreement as well. The patient will be here in the hospital and comfort measures only will be given, until we have a place to transfer her for hospice care. cc: Daniel Flood MD
[2018-08-30] MEDS: PHENERGAN IV PRN (01:20)
[2018-08-30] MEDS: MIRALAX PO SCH (10:55)
--- NOTE | 2018-08-30 11:52 | HEMO/ONC PROGRESS NOTE ---
DATE: 08/30/2018 SUBJECTIVE: Ms. Kirkland continues to look very ill this morning. She states that although her pain is minimal right now, she is very nauseated. Her abdomen looks much better. It is not as distended as it has been. She does appear uncomfortable. OBJECTIVE: Vital Signs: Temperature 97.7 degrees, pulse rate 120, respiratory rate 22, blood pressure 141/58, O2 saturation 96% on room air, 0/10 pain. General: Ill-appearing, elderly female in no acute distress. Cardiovascular: S1, S2 noted. Regular rate and rhythm. Tachycardia. Respiratory: Bilateral breath sounds. No use of accessory muscle. Coarse rhonchi in upper lungs. Extremities: No evidence of edema. Abdomen: Full, nontender. LABORATORY DATA: None for today. ASSESSMENT: 1. Malignant ascites with peritoneal carcinomatosis. 2. Recurrent ovarian cancer with peritoneal carcinomatosis. 3. Pneumonia. 4. Failure to thrive. 5. Generalized weakness secondary to deconditioning. 6. Comfort measures only. PLAN: The patient has elected to pursue hospice at this time. She will be discharged when there is a place to transfer her for hospice care as her family is not able to take care of her at home at this time. Continue all current management for comfort measures. Dictated by CAMILA Catalan for Adrian Razo MD cc: Adrian Razo MD
--- NOTE | 2018-08-30 13:26 | PROGRESS NOTE ---
DATE: 08/30/2018 SUBJECTIVE: The patient resting in bed. OBJECTIVE: Vital signs: Temperature 97.7 degrees, pulse 120, respiration rate 20, blood pressure is 141/58. Oxygen saturation 96%. HEENT: Atraumatic, normocephalic. Cardiovascular: S1, S2. Respiratory: Has occasional rales bilaterally. Abdomen: Soft, nontender. No masses felt. Extremities: No evidence of edema. Central nervous system: No obvious focal deficits noted. LABORATORY DATA: None. ASSESSMENT AND PLAN: 1. Malignant ascites with peritoneal carcinomatosis. 2. Ovarian cancer. 3. Pneumonia. 4. Failure to thrive. 5. Generalized weakness with deconditioning. PLAN: Continue comfort measures only. cc: Daniel Flood MD [facility]
[2018-08-30] MEDS: DURAGESIC 25 MICROGM/HR PATCH TD SCH (13:29)
[2018-08-30] MEDS: DILAUDID IV PRN ×2 (16:22→23:02)
[2018-08-30] MEDS: ATIVAN IV PRN (16:22)
[2018-08-30] MEDS: REGLAN IV PRN (16:22)
[2018-08-31] MEDS: DILAUDID IV PRN ×4 (08:01→21:42)
[2018-08-31] MEDS: MIRALAX PO SCH (09:56)
--- NOTE | 2018-08-31 15:38 | HEMO/ONC PROGRESS NOTE ---
DATE: 08/31/2018 SUBJECTIVE: Ms. Kirkland is asleep this morning in her bed. She does not awake to my touch or during my assessment. She looks rather ill this morning. Her family states that she was briefly up last night, but otherwise she slept very good. Her NG tube remains in place. Her abdomen seems more firm this morning. OBJECTIVE: Vital Signs: Temperature 97.1 degrees, pulse rate 125, blood pressure 128/69, O2 saturation 90% on 2 L via nasal cannula. Appears in no pain while asleep. PHYSICAL EXAMINATION: General: Chronically ill-appearing elderly female in no acute distress. Cardiovascular: S1, S2 noted. Regular rate and rhythm. Tachycardia. Respiratory: Bilateral breath sounds. Clear to upper lobes. Occasional rales heard. Abdomen: Distended, firm. Extremities: No evidence of edema. LABORATORY DATA: None for today. ASSESSMENT: 1. Malignant ascites with peritoneal carcinomatosis. 2. Recurrent ovarian cancer with peritoneal carcinomatosis. 3. Pneumonia. 4. Failure to thrive. 5. Generalized weakness secondary to deconditioning. 6. Comfort measures only. PLAN: Continue to provide the patient comfort measures as necessary. Family aware of the patient's prognosis and condition. Dictated by CAMILA Catalan for Adrian Razo MD cc: Adrian Razo MD [facility]
--- NOTE | 2018-08-31 16:26 | PROGRESS NOTE ---
DATE: 08/31/2018 SUBJECTIVE: The patient is resting in bed. She is very lethargic. She is barely able to talk. OBJECTIVE: Vital signs as follows: Temperature 97.1 degrees, pulse 125, respiratory rate is 20, blood pressure 120/69, oxygen saturation is 98%.HEENT: Atraumatic, normocephalic. Cardiovascular: S1, S2. Tachycardic. Respiratory system: Good air entry bilaterally. Abdomen full, nontender. No masses felt. Extremities: No evidence of edema. Central nervous system: The patient is lethargic. No obvious focal deficit noted. LABORATORY DATA: None. ASSESSMENT: 1. Malignant ascites with peritoneal carcinomatosis. 2. Ovarian cancer. 3. Pneumonia. 4. Failure to thrive. 5. Generalized weakness with deconditioning. PLAN: Continue comfort care measures only. cc: Daniel Flood MD
[2018-09-01] MEDS: ATIVAN IV PRN ×2 (00:05→08:07)
[2018-09-01] MEDS: DILAUDID IV PRN ×2 (02:13→06:23)
[2018-09-01 08:05] VITALS: BP 153/75
[2018-09-01] MEDS: MIRALAX PO SCH (08:08)
[2018-09-01] MEDS ORDERED: ATIVAN IV PRN (08:20)
[2018-09-01] MEDS ORDERED: DILAUDID IV PRN (08:21)
[2018-09-01] MEDS ORDERED: DURAGESIC 75 MICROGM/HR PATCH TD SCH (08:30)
--- NOTE | 2018-09-01 13:55 | HEMO/ONC PROGRESS NOTE ---
DATE: 09/01/2018 SUBJECTIVE: Ms. Kirkland is sleeping this morning. She is moaning/grunting with every breath. The nurse met me at the door to tell me that she feels like Ms. Kirkland is suffering. She requested closer dosing of Dilaudid to control her pain. The patient remains with NG tube and a non- rebreather on. Nursing staff states her sats are in the 80s. OBJECTIVE: Vitals: Temperature 98.9 degrees, pulse rate 162, respiratory rate 15, blood pressure 153/75, O2 saturation 80% on non-rebreather after. F5 on the Sutton-Gavin FACES scale. General: Critically ill-appearing female, extremely frail. Cardiovascular: Tachycardic. Respiratory: Coarse breath sounds. Low O2 saturation. Grunting with every breath. Abdomen: Distended and firm. NG tube in place. Neurological: The patient is very lethargic. LABORATORY DATA: None for today. ASSESSMENT: 1. Malignant ascites, with peritoneal carcinomatosis. 2. Recurrent ovarian cancer, with peritoneal carcinomatosis. 3. Pneumonia. 4. Failure to thrive. 5. Generalized weakness secondary to deconditioning. 6. Comfort measures only. PLAN: Continue to provide the patient with comfort measures as necessary. We increased Dilaudid to every 2 hours for patient comfort, increased her Ativan to 1 mg every 4 hours for sedation, and increased her Duragesic patch to 75 mg for comfort. The family is aware of the patient's poor prognosis and condition. Please call us if needed over the weekend. Dictated by CAMILA Catalan for Adrian Razo MD cc: Adrian Razo MD
--- NOTE | 2018-09-02 03:50 | DISCHARGE SUMMARY ---
ADMISSION DATE: 08/23/2018 DISCHARGE DATE: 09/01/2018 PRINCIPAL FINAL DIAGNOSIS: Recurrent ovarian cancer with peritoneal carcinomatosis. SECONDARY DIAGNOSIS: 1. Intractable abdominal pain secondary to malignant ascites as well as peritoneal carcinomatosis. 2. Pneumonia. 3. Failure to thrive. 4. Generalized weakness as well as deconditioning. 5. Bilious vomitus with possible small-bowel obstruction due to progressive peritoneal carcinomatosis. 6. Volume depletion. 7. Chronic hyponatremia. 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 The patient followed up with Dr. Razo, and went to see Dr. Razo for a regular appointment, and because of intractable abdominal pain as well as distention, was referred to the ER for inpatient management. She was subsequently admitted to the medical floor. Had about 800 mL of ascitic fluid removed. The patient was placed on oral Levaquin for possible pneumonia, and also maintained on intravenous hydration in light of clinical volume depletion. The patient was made DNR level 1. As the hospitalization progressed, the patient was subsequently transitioned to hospice care, where she received only comfort measures. She did on 09/01/2018. cc: Daniel Flood MD
== END 2018-09-01 10:10 | disposition expired | DRG 356 ==
LOC: ED 11:17 → EDIPHOLD 14:42 → SUATTDRO 14:42 → 3N 21:36
PROVIDERS: ATTEND Internal Medicine
CPT/HCPCS: 49083; 51701; 71010; 71045; 80053; 81001; 82550; 83605; 83735; 84484; 85025; 85610; 85730; 87040; 93005; 96361; 96374; 96375; 96376; 97110; 97162; 97530; 99285; A9270; C1729; J0330; J0690; J1170; J2060; J2270; J2405; J2550; J2765; J3010; J7030; P9612